=== PATIENT | female | born 1945 | race Caucasian/White ===

== ENCOUNTER 2017-04-07 09:31 | Inpatient (IN) | payer OTHER ==
[2017-04-07] MEDS ORDERED: SODIUM CHLORIDE 500 ML IV STA (11:20)
--- NOTE | 2017-04-07 11:28 | PDOC ---
History of Present Illness - General Chief Complaint: Dysphagia Stated Complaint: TROUBLE SWALLOWING Time Seen by Provider: 04/07/17 10:21 History Source: Patient - History of Present Illness Timing/Duration: reports: constant Past History - Past Medical History Allergies/Adverse Reactions: Allergies Allergy/AdvReac Type Severity Reaction Status Date / Time Sulfa (Sulfonamide Allergy Intermediate hives Unverified 04/07/17 11:31 Antibiotics) [Sulfa(Sulfonamide Antibiotics)] Home Medications: Ambulatory Orders Ca/D3/Mag#11/Zinc/Bobtailer/Lorenzo/Bor [Caltrate 600+D Plus Tablet] 1 each PO DAILY Dicyclomine HCl [Bentyl] 10 mg PO TID 04/07/17 Lactobacillus Combo No.13 [Probiotic Pearls Complete] 1 each PO DAILY 04/07/17 Levothyroxine Sodium [Levo-T] 100 mcg PO DAILY 04/07/17 Losartan Potassium 50 mg PO DAILY 04/07/17 Metformin HCl 500 mg PO BID 04/07/17 Metoprolol Succinate [Toprol Xl -] 25 mg PO DAILY 04/07/17 Multivit,Tx Iron,Other Mins [Azdekfyf-T-K with Minerals] 1 each PO DAILY Omeprazole 20 mg PO DAILY 04/07/17 Oxybutynin Chloride [Ditropan Xl] 15 mg PO DAILY 04/07/17 Pumpkin Seed Extract/Soy Germ [Azo Bladder Control Capsule] 300 mg PO DAILY Anemia: No Asthma: No Cancer: No Cardiac Disorders: No CVA: No COPD: No CHF: No Dementia: Yes (NIDDM) GI Disorders: Yes (GERD, STRICTURE IN ESOPHOGUS ,DIVERTICULITIS) Disorders: Yes (UTI'S) HTN: Yes Hypercholesterolemia: Yes Seizures: No Thyroid Disease: Yes - Surgical History Abdominal Surgery: No Appendectomy: No Cardiac Surgery: No Cholecystectomy: No Lung Surgery: No Neurologic Surgery: No Orthopedic Surgery: No - Psycho/Social/Smoking Cessation Hx Anxiety: No Suicidal Ideation: No Smoking History: Never smoked Have you smoked in the past 12 months: No If you are a former smoker, when did you quit?: 25-30 YEARS Hx Alcohol Use: No Drug/Substance Use Hx: No Substance Use Type: None Review of Systems - Review of Systems Constitutional: No: Fever, Unexplained wgt Loss ABD/GI: Yes: Nausea, Vomiting. No: Diarrhea, Rectal Bleeding, Abdominal cramping, Tarry Stools *Physical Exam - Vital Signs Last Vital Signs Temp Pulse Resp BP Pulse Ox 98.0 F 112 H 18 154/89 98 04/07/17 09:32 04/07/17 09:32 04/07/17 09:32 04/07/17 09:32 04/07/17 09:32 - Physical Exam General Appearance: Yes: Appropriately Dressed. No: Apparent Distress HEENT: positive: Normal Voice Neck: positive: Supple Respiratory/Chest: positive: Lungs Clear, Normal Breath Sounds. negative: Respiratory Distress Cardiovascular: positive: Regular Rate, S1, S2 Gastrointestinal/Abdominal: positive: Soft. negative: Tender Integumentary: positive: Dry, Warm Neurologic: positive: Fully Oriented, Alert, Normal Mood/Affect ED Treatment Course - LABORATORY CBC & Chemistry Diagram: 04/07/17 11:53 04/07/17 11:53 Medical Decision Making - Medical Decision Making 04/07/17 11:36 04/07/17 12:08 71 yo F, h/o DM, diverticulitis, hiatal hernia, gastritis, GERD C/B presbyesophagus w/ multiple dilatations 2/2 dysphagia, last procedure 4 years ago and states she was doing well until several days ago when dysphagia reoccurred. States when she eats, food gets suck and has to regurgitate. Has difficulty handling her secretions as well. Also c/o excessive belching and had 1 e/o n/v last night. No abd pain, change in BM, f/c or unexplained weight loss See exam Recurrent dysphagia 2/2 presbyesophagus S/p dilitation 4 years ago Tachy at triage which is possibly 2/2 dehydration as unable to harinder po x >24 hrs Has difficulty handling secretion F/u w/ GI here -labs/GI/admit 04/07/17 12:54 Case d/w Dr Flood who pt admitted to [facility]. As per MD, pt has had ~2 point drop in Hct from 11 to 9 recently. Rec stool guaiac in ED. Dr Eaton aware and pt admitted 04/07/17 13:09 Case d/w Dr Arana (coverage for Dr Jackson), wants CT chest r/o food impaction *DC/Admit/Observation/Transfer Diagnosis at time of Disposition: Dysphagia Qualifiers: Dysphagia type: unspecified Qualified Code(s): R13.10 - Dysphagia, unspecified - Discharge Dispostion Condition at time of disposition: Fair Admit: Yes - Referrals
[2017-04-07 12:10] LABS: BASOPHIL 0.5 % (0-2.0); EOSINOPHIL 1.1 % (0-4.5); MCH 25.6 pg (25.7-33.7); MCHC 31.7 g/dl (32.0-36.0); MEAN CELL VOLUME 80.7 fl (80-96); MEAN PLT VOLUME 8.7 fl (7.5-11.1); NEUTROPHILS 81.2 % (42.8-82.8); PLATELET COUNT 376 K/MM3 (134-434); WHITE BLOOD COUNT 15.3 K/mm3 (4.0-10.0)
--- NOTE | 2017-04-07 12:32 | PDOC ---
*Physical Exam - Vital Signs Last Vital Signs Temp Pulse Resp BP Pulse Ox 98.0 F 112 H 18 154/89 98 04/07/17 09:32 04/07/17 09:32 04/07/17 09:32 04/07/17 09:32 04/07/17 09:32 - Physical Exam Comments: 04/07/17 12:43 The patient is a 71 year old female, with a significant past medical history of hypertension, hypothyroidism, GERD with h/o esophageal stricture with multiple dilatations 2/2 dysphagia, (last procedure 4 years ago) , gastritis, hiatal hernia, who presents to the emergency department with several days of dysphagia. The patient states that when she eats, food gets stuck in her throat and she states she feels she has to regurgitate. She also reports having difficulty swallowing her secretions. She denies chest pain, shortness of breath, headache and dizziness. She denies fever, chills, nausea, vomit, diarrhea and constipation. She denies dysuria, frequency, urgency and hematuria. Allergies: sulfa drugs GI: Dr. Jackson <Marry Tamez - Last Filed: 04/07/17 12:43> - Vital Signs Last Vital Signs Temp Pulse Resp BP Pulse Ox 98.0 F 112 H 18 154/89 98 04/07/17 09:32 04/07/17 09:32 04/07/17 09:32 04/07/17 09:32 04/07/17 09:32 - Physical Exam General Appearance: Yes: Nourished, Appropriately Dressed. No: Apparent Distress, Disheveled HEENT: positive: EOMI, Normal ENT Inspection, Normal Voice Neck: positive: Trachea midline. negative: Normal Thyroid, Supple Respiratory/Chest: positive: Chest Tender, Lungs Clear, Normal Breath Sounds Cardiovascular: positive: Regular Rhythm, Regular Rate, S1, S2. negative: Edema , JVD Gastrointestinal/Abdominal: positive: Normal Bowel Sounds, Flat, Soft. negative : Tender Musculoskeletal: positive: Normal Inspection Integumentary: positive: Normal Color, Dry, Warm Neurologic: positive: Fully Oriented, Alert, Normal Mood/Affect <Natalia Hi - Last Filed: 04/07/17 13:42> ED Treatment Course - LABORATORY CBC & Chemistry Diagram: 04/07/17 11:53 04/07/17 11:53 - ADDITIONAL ORDERS Additional order review: Laboratory Results 04/07/17 11:53 Sodium 140 Potassium 4.3 Chloride 102 Carbon Dioxide 26 Anion Gap 12 BUN 22 H Creatinine 0.6 Creat Clearance w eGFR > 60 Random Glucose 125 H Calcium 8.7 Total Bilirubin 0.4 AST 31 ALT 25 Alkaline Phosphatase 57 Total Protein 7.3 Albumin 3.9 04/07/17 11:53 RBC 3.77 MCV 80.7 MCHC 31.7 L RDW 14.0 MPV 8.7 Neutrophils % 81.2 Lymphocytes % 7.5 L Monocytes % 9.7 Eosinophils % 1.1 Basophils % 0.5 - Medications Given in the ED: ED Medications Discontinued Medications Generic Name Dose Route Start Last Admin Trade Name Freq PRN Reason Stop Dose Admin Sodium Chloride 500 mls @ 0 mls/hr 04/07/17 11:20 04/07/17 11:50 Normal Saline - IV 04/07/17 11:21 500 mls/hr ASDIR STA Administration Wide Open <Marry Tamez - Last Filed: 04/07/17 12:43> - LABORATORY CBC & Chemistry Diagram: 04/07/17 11:53 04/07/17 11:53 - Medications Given in the ED: ED Medications Discontinued Medications Generic Name Dose Route Start Last Admin Trade Name Freq PRN Reason Stop Dose Admin Sodium Chloride 500 mls @ 0 mls/hr 04/07/17 11:20 04/07/17 11:50 Normal Saline - IV 04/07/17 11:21 500 mls/hr ASDIR STA Administration Wide Open <Natalia Hi - Last Filed: 04/07/17 13:42> Medical Decision Making - Medical Decision Making 04/07/17 12:28 71 yo F with ho DM gastritis hiatal hernia, gerd h/o esophageal stricture requiring dilation, here with, recurrent episodes of food bolus impaction. has had last dilation several years ago. over last few weeks, has had several episodes where food gets stuck. most recently got beef rollup stuck in throat. initially couldn't handle saliva, or water. now this am holding secretions, but comes back up delayed. no cough no cp. no other complaints. pt sees dr. Jackson ( GI) told to come to ED. on exam awake alert no stridor. noral card lung and abd exam. diferential: foreign body sensation, throat scratch, esophageal food bolus impaction, worsening stricture plan d/w dr. Jackson, possible admission for food bolus removal or dilation. labs. reassess. 04/07/17 13:42 pt will be admitted, d/w Dr. Jackson <Natalia Hi - Last Filed: 04/07/17 13:42> *DC/Admit/Observation/Transfer - Attestations Scribe Attestion: 04/07/17 12:44 Documentation prepared by Marry Tamez, acting as medical billing assistant for Natalia Hi MD <Marry Tamez - Last Filed: 04/07/17 12:43> <Natalia Hi - Last Filed: 04/07/17 13:42> Diagnosis at time of Disposition: Dysphagia - Discharge Dispostion Condition at time of disposition: Fair - Referrals
[2017-04-07 12:33] LABS: ALBUMIN 3.9 g/dl (3.4-5.0); ANION GAP 12 (8-16); CALCIUM 8.7 mg/dL (8.5-10.1); CO2 26 mmol/L (21-32); CREATININE 0.6 mg/dL (0.55-1.02); GLUCOSE,RANDOM 125 mg/dL (74-106); SGPT/ALT 25 U/L (12-78)
[2017-04-07 12:36] LABS: ALK PHOS 57 U/L (45-117); BILIRUBIN,TOTAL 0.4 mg/dL (0.2-1.0); TOT PROT 7.3 g/dl (6.4-8.2)
[2017-04-07 12:37] LABS: SGOT/AST 31 U/L (15-37)
[2017-04-07 12:48] LABS: INR 1.12 (0.82-1.09); PROTHROMBIN TIME (PATIENT) 12.4 SEC (9.98-11.88)
--- NOTE | 2017-04-07 12:53 | EKG ---
Test Reason : Blood Pressure : / mmHG Vent. Rate : 100 BPM Atrial Rate : 100 BPM P-R Int : 106 ms QRS Dur : 074 ms QT Int : 374 ms P-R-T Axes : 018 -03 030 degrees QTc Int : 482 ms SINUS RHYTHM WITH SHORT [place] OTHERWISE NORMAL ECG WHEN COMPARED WITH ECG OF 27-JUL-2008 23:02, NO SIGNIFICANT CHANGE WAS FOUND Confirmed by ANICETO MCDONALD MD ([id number]) on 04/07/2017 12:52:47 PM Referred By: Confirmed By:ANICETO MCDONALD MD
[2017-04-07 13:42] VITALS: BMI 22.3
--- NOTE | 2017-04-07 13:58 | PN ---
Progress Note (short form) - Note Progress Note: Full consult dictated 71F with h/o hiatal hernia, schatzki's ring, ? Estrada's stricture, h/o food impactions requiring esophageal dilation 08/21 and 2009. Now with more frequent difficulty swallowing solids over the last 2-3 weeks (did not seek medical advice regarding this). She says that she was able to "clear it on her own" except for last night when she ate djiboutian food (bulk meat was involved). She does not adhere to a dysphagia diet. She was spitting up saliva last night and this morning. Less now. Imp: Suspected recurrent food impaction Plan: EGD with possible dilation for further evaluation. Discussed with Ms. Gottlieb and her family who was present bedside. Discussed potential risks of the procedure like but not limited to bleeding, perforation requiring surgery to repair, infection, sedation medication effects all of which could be potentially life threatening. She has agreed to the procedure. She is aware she is likely to require general anesthesia to protect her airway.
[2017-04-07] MEDS ORDERED: LIDOCAINE HCL/PF 2% SDV 5ML VIAL ONE (14:29)
[2017-04-07] MEDS ORDERED: PROPOFOL 20 ML ONE (14:29)
--- NOTE | 2017-04-07 14:37 | CONS ---
DATE OF CONSULTATION: 04/07/2017 REQUESTING PHYSICIAN: Kyle Flood MD HISTORY: The patient is a 71-year-old female admitted through [facility] Emergency Room for evaluation of dysphagia. She is known to my colleague, Dr. Ross Jackson, and she is known to have a history of dysphagia. She had an upper endoscopy in 2006 when she presented with a meat impaction requiring extraction and dilatation of a Estrada stricture. She also had a dilation of her esophagus in 2009 in [place] when biopsies could not exclude eosinophilic esophagitis. Her last upper endoscopy with Dr. Jackson was October 2015 that revealed GERD with a patent Schatzki ring above a hiatal hernia and moderate gastritis. In follow up on October 22, [address] Jackson, he recommended continuing antireflux measures as well as ranitidine 150 mg b.i.d. supplemented with Gaviscon, and he did advise the patient to undergo a colonoscopy to exclude recurrent colon adenomas as she has a history of colon polyps; however, she deferred at that time. She now states that over the last couple of weeks she has been having more frequent episodes of dysphagia to solids, and she says she was able to clear them on her own through vomiting; however, last night she went to a [employer] restaurant. She ate tortillas. She tasted a chicken wing; however, it was too spicy and then she ate a beer wrap and began to experience worsening of her dysphagia. She was vomiting up liquids and could not maintain her saliva. She did not seek medical evaluation regarding the previous episodes or the episodes from last night until today when she was advised to go to the emergency room. She did have some vomiting earlier this morning, and while it is improved somewhat, she still feels it is hard for her to swallow water. PAST MEDICAL HISTORY: Includes diabetes mellitus, hypertension, hyperlipidemia, hypothyroidism, question of a resolved Estrada stricture. It is unclear if her dysphagia was related to dysmotility or the Schatzki ring. Colonoscopic polypectomies in 2004. She was noted to have a sigmoid adenoma, diverticulitis in July 2008, IBS, broken left arm in 2007, osteoporosis, and interstitial cystitis. PAST SURGICAL HISTORY: Includes bilateral iridectomies. She had a left breast biopsy that revealed it to be benign cystic changes. SOCIAL HISTORY: She is single. She is a retired customer field service tech. Former smoker. Quit in 1984. She drinks alcohol rarely. No history of intravenous drug abuse or illicit drugs. FAMILY HISTORY: Father at age 94. Mother of age 91 of diabetic complications. She has a sister who had kidney excised for benign neoplasm and had bleeding ulcers. An aunt with a history of breast cancer. An aunt with a history of stomach cancer. An aunt with a history of bone cancer. She has no children. MEDICATIONS: Prior to admission included Oxybutynin, metformin, dicyclomine, simvastatin, metoprolol, Levoxyl, losartan, ranitidine, fish oil, Caltrate, probiotic, and multivitamin. ALLERGIES: SULFA and some [id number] ANTIHISTAMINES, which give her palpitations. REVIEW OF SYSTEMS: She denied any chest pain or shortness of breath. No fevers or chills. She does have a cough when lying flat. No rectal bleeding. No melena was reported. No diarrhea. No change in her bowel habits. No abdominal pain. PHYSICAL EXAMINATION: General: The patient was found lying in her emergency room stretcher. She appears to be in no apparent distress. Vital Signs: She is afebrile with a pulse of 96, blood pressure 124/87, O2 saturation 99% on room air. HEENT: Her sclerae are anicteric. Neck: Supple. Heart: Reveals a regular rate and rhythm. No murmurs are appreciated. Lungs: Clear to auscultation bilaterally. Abdomen: The abdomen is nondistended. There are no scars. No hepatosplenomegaly is appreciated. No masses are palpated. No hernias are detected. No tenderness is elicited. Extremities: Reveals no lower extremity edema. LABORATORY EVALUATION: Reveals white blood cell count 15.3, hemoglobin 9.7, hematocrit 30.4, platelets 376, INR 1.12. Sodium 140, potassium 4.3, chloride 102, bicarbonate 26, BUN 22, creatinine 0.6, AST 31, ALT 25, alkaline phosphatase 57, total bilirubin 0.4 with an albumin 3.9. RADIOLOGY: A chest x-ray was performed in the emergency room revealing no evidence of acute pulmonary disease and EKG performed revealed sinus rhythm with short [place]. Otherwise, normal EKG. No significant change when compared to an EKG from July 27, 2008. IMPRESSION: This is a 71-year-old female with suspected recurrent esophageal food impaction. Question if this is related to esophageal stricture or Schatzki ring, her hiatal hernia, and I did discuss EGD with possible dilation for further evaluation. I discussed this with the patient and her sister who was present at bedside. We discussed potential risks of the procedure like, but not limited to, bleeding, perforation requiring surgery to repair, infection, sedation, medication effects all of which could be potentially life threatening. She has agreed to the procedure. She is also aware that she will likely require general anesthesia to protect her airway in case there is a significant amount of food retained within her esophagus. Other recommendations pending the above patient's clinical course. I thank you for this consultative opportunity. GUERA SCHULTZ DO CD/[id number]
--- NOTE | 2017-04-07 15:30 | HP ---
Admitting History and Physical - Primary Care Physician PCP: Kyle Flood - Admission Chief Complaint: I was having trouble swallowing History of Present Illness: Ms Gottlieb is a very pleasant 71 year old female with history of Schatzki ring who comes in with difficulty swallowing over the past week. She says it has happened 3 times this week. She says she will be eating something and will feel it get stuck in her throat. The first two times it went away on its own but the third time it persisted. The third time it was so severe she was unable to swallow liquids or her secretions. She would throw up every time she swallowed. Aside from this she says she is doing well. She denies fevers, chills, lightheadedness, dizziness, chest pain, shortness of breath, nausea, diarrhea, constipation, difficulty or pain on urination, or swelling. I am seeing her s/p endoscopy and she says she is feeling much better. She is a little drowsy from the procedure but otherwise doing well. History Source: Patient Limitations to Obtaining History: No Limitations - Past Medical History Cardiovascular: Yes: HTN, Hyperlipdemia Gastrointestinal: Yes: GERD, Other (hiatal hernia) ...: No Endocrine: Yes: Diabetes Mellitus, Hypothyroidism - Past Surgical History Past Surgical History: Yes: None - Smoking History Smoking history: Never smoked Have you smoked in the past 12 months: No If you are a former smoker, when did you quit?: 25-30 YEARS - Alcohol/Substance Use Hx Alcohol Use: No History of Substance Use: reports: None - Social History ADL: Independent History of Recent Travel: No Home Medications - Allergies Allergies/Adverse Reactions: Allergies Allergy/AdvReac Type Severity Reaction Status Date / Time Sulfa (Sulfonamide Allergy Intermediate hives Unverified 04/07/17 11:31 Antibiotics) [Sulfa(Sulfonamide Antibiotics)] - Home Medications Home Medications: Ambulatory Orders Ca/D3/Mag#11/Zinc/Australian Rules Footballer/Lorenzo/Bor [Caltrate 600+D Plus Tablet] 1 each PO DAILY Dicyclomine HCl [Bentyl] 10 mg PO TID 04/07/17 Lactobacillus Combo No.13 [Probiotic Pearls Complete] 1 each PO DAILY 04/07/17 Levothyroxine Sodium [Levo-T] 100 mcg PO DAILY 04/07/17 Losartan Potassium 50 mg PO DAILY 04/07/17 Metformin HCl 500 mg PO BID 04/07/17 Metoprolol Succinate [Toprol Xl -] 25 mg PO DAILY 04/07/17 Multivit,Tx Iron,Other Mins [Zkcavdwp-Q-G with Minerals] 1 each PO DAILY Omeprazole 20 mg PO DAILY 04/07/17 Oxybutynin Chloride [Ditropan Xl] 15 mg PO DAILY 04/07/17 Pumpkin Seed Extract/Soy Germ [Azo Bladder Control Capsule] 300 mg PO DAILY Family Disease History - Family Disease History Family Disease History: Other: Sister (one kidney, removed for unknown reason) Review of Systems Findings/Remarks: Full review of systems obtained, as per HPI and otherwise negative Physical Examination Vital Signs: Vital Signs Temperature 98.2 F 04/07/17 15:00 Pulse Rate 107 H 04/07/17 15:00 Respiratory Rate 18 04/07/17 15:00 Blood Pressure 112/72 04/07/17 15:00 O2 Sat by Pulse Oximetry (%) 94 L 04/07/17 15:00 Constitutional: Yes: Well Nourished, No Distress, Calm Eyes: Yes: Conjunctiva Clear, EOM Intact HENT: Yes: Atraumatic, Normocephalic Cardiovascular: Yes: Regular Rate and Rhythm. No: Gallop, Murmur, Rub Respiratory: Yes: Regular, CTA Bilaterally. No: Rales, Rhonchi, Wheezes Gastrointestinal: Yes: Normal Bowel Sounds, Soft. No: Distention, Tenderness Extremities: Yes: WNL Edema: No Labs: Laboratory Results - last 24 hr 04/07/17 04/07/17 04/07/17 11:20 11:53 11:53 WBC 15.3 H RBC 3.77 Hgb 9.7 L Hct 30.4 L MCV 80.7 MCHC 31.7 L RDW 14.0 Plt Count 376 MPV 8.7 Neutrophils % 81.2 Lymphocytes % 7.5 L Monocytes % 9.7 Eosinophils % 1.1 Basophils % 0.5 INR 1.12 Sodium Potassium Chloride Carbon Dioxide Anion Gap BUN Creatinine Creat Clearance w eGFR Random Glucose Calcium Total Bilirubin AST ALT Alkaline Phosphatase Total Protein Albumin Stool Occult Blood Blood Type A POSITIVE Antibody Screen Negative 04/07/17 04/07/17 11:53 13:37 WBC RBC Hgb Hct MCV MCHC RDW Plt Count MPV Neutrophils % Lymphocytes % Monocytes % Eosinophils % Basophils % INR Sodium 140 Potassium 4.3 Chloride 102 Carbon Dioxide 26 Anion Gap 12 BUN 22 H Creatinine 0.6 Creat Clearance w eGFR > 60 Random Glucose 125 H Calcium 8.7 Total Bilirubin 0.4 AST 31 ALT 25 Alkaline Phosphatase 57 Total Protein 7.3 Albumin 3.9 Stool Occult Blood Negative Blood Type Antibody Screen Problem List - Problems (1) Dysphagia Assessment/Plan: -case d/w Dr Arana -s/p endoscopy with dilatation -monitor overnight -PPI -full liquid diet -evaluate, possible discharge in am Code(s): R13.10 - DYSPHAGIA, UNSPECIFIED Qualifiers: Dysphagia type: unspecified Qualified Code(s): R13.10 - Dysphagia, unspecified (2) Leukocytosis Assessment/Plan: -suspect secondary to dehydration -no signs of sepsis -encourage oral hydration -recheck in am Code(s): D72.829 - ELEVATED WHITE BLOOD CELL COUNT, UNSPECIFIED (3) Dehydration Assessment/Plan: -encourage oral hydration -received IVF in the ED Code(s): E86.0 - DEHYDRATION (4) Anemia Assessment/Plan: -no previous labs -stool occult negative Code(s): D64.9 - ANEMIA, UNSPECIFIED (5) HTN (hypertension) Assessment/Plan: -continue home regimen -monitor Code(s): I10 - ESSENTIAL (PRIMARY) HYPERTENSION (6) Diabetes Assessment/Plan: -continue home regimen -full liquid diabetic diet -can monitor glucose on bmp Code(s): E11.9 - TYPE 2 DIABETES MELLITUS WITHOUT COMPLICATIONS (7) Hypothyroid Assessment/Plan: -continue levothyroxine Code(s): E03.9 - HYPOTHYROIDISM, UNSPECIFIED
[2017-04-07] MEDS ORDERED: FUROSEMIDE 40 MG/4 ML INJECTABLE VIAL IVPB ONE (16:42)
[2017-04-07] MEDS ORDERED: FUROSEMIDE 40 MG/4 ML INJECTABLE VIAL ONE (16:44)
--- NOTE | 2017-04-07 17:38 | PN ---
Progress Note (short form) - Note Progress Note: Called that patient with low O2 saturations to low 80's. Placed on 2L NC O2. Saturations improved to upper 80's. CXR was performed revealing congestive changes, mild nausea. She denies shortness of breath / chest pain. Dr. Eaton gave Lasix 20mg IVP. Remains tachycardic to low 100's. On exam, mild ronchi bilaterally. No chest pain. - Advised changing admission to monitored bed - Ordered Ceftriaxone 2g IVPB - Ordered CBC/BMP Stat - Has CT scan of chest ordered from ER. Would proceed with that as well - O2 supplementation
[2017-04-07 20:23] LABS: BASOPHIL 0.4 % (0-2.0); EOSINOPHIL 0.6 % (0-4.5); MCH 25.4 pg (25.7-33.7); MCHC 31.8 g/dl (32.0-36.0); MEAN CELL VOLUME 79.8 fl (80-96); MEAN PLT VOLUME 8.7 fl (7.5-11.1); NEUTROPHILS 83.2 % (42.8-82.8); PLATELET COUNT 400 K/MM3 (134-434); RDW 14.3 % (11.6-15.6); WHITE BLOOD COUNT 15.5 K/mm3 (4.0-10.0)
[2017-04-07 21:12] LABS: CALCIUM 8.6 mg/dL (8.5-10.1); COCKROFT - GAULT 65.5435; CREATININE 0.7 mg/dL (0.55-1.02)
[2017-04-07] MEDS: DICYCLOMINE HCL 10 MG CAPSULE PO SCH (21:46)
[2017-04-07] MEDS: CEFTRIAXONE 100 ML IVPB SCH (21:49)
[2017-04-07] MEDS ORDERED: PANTOPRAZOLE 40 MG TABLET (FP) PO SCH (22:00)
[2017-04-08] MEDS: DICYCLOMINE HCL 10 MG CAPSULE PO SCH ×2 (06:18→13:17)
[2017-04-08] MEDS: metFORMIN HCL 500 MG TABLET (FP) PO SCH ×2 (06:18→17:06)
[2017-04-08] MEDS: FUROSEMIDE 40 MG/4 ML INJECTABLE VIAL IVPUSH SCH ×2 (06:19→13:17)
[2017-04-08] MEDS ORDERED: LEVOTHYROXINE NA 100 MCG TABLET (FP) PO SCH (07:00)
[2017-04-08 07:58] LABS: CALCIUM 9.2 mg/dL (8.5-10.1); COCKROFT - GAULT 62.679; CREATININE 0.7 mg/dL (0.55-1.02); MAGNESIUM 1.9 mg/dL (1.8-2.4); PHOSPHOROUS 4.1 mg/dL (2.5-4.9)
[2017-04-08 08:02] LABS: BASOPHIL 0.8 % (0-2.0); EOSINOPHIL 3.9 % (0-4.5); MCHC 32.4 g/dl (32.0-36.0); MEAN CELL VOLUME 80.4 fl (80-96); NEUTROPHILS 73.3 % (42.8-82.8); PLATELET COUNT 420 K/MM3 (134-434); RDW 14.2 % (11.6-15.6); WHITE BLOOD COUNT 11.6 K/mm3 (4.0-10.0)
[2017-04-08] MEDS: CEFTRIAXONE 100 ML IVPB SCH (09:25)
[2017-04-08] MEDS ORDERED: PUMPKIN SEED EXTRACT PO SCH (10:00)
[2017-04-08] MEDS ORDERED: SOLIFENACIN SUCCINATE 5 MG TAB (FP) PO SCH (10:00)
[2017-04-08] MEDS ORDERED: METOPROLOL SUCCINATE 25 MG TAB.SR.24H (FP) PO SCH (10:00)
[2017-04-08] MEDS ORDERED: [UNRECOGNIZED DRUG - OTHER] PO SCH (10:00)
[2017-04-08] MEDS ORDERED: LOSARTAN POTASSIUM 50 MG TABLET (FP) PO SCH (10:00)
[2017-04-08] MEDS ORDERED: CALCIUM 500MG/VIT-D 200 UNITS COMBO TABLET (FP) PO SCH (10:00)
[2017-04-08] MEDS ORDERED: SOY GERM PO SCH (10:00)
[2017-04-08] MEDS ORDERED: PATIENT'S OWN MEDICATION (NON-FORMULARY) (Omeprazole 20 MG) PO SCH (10:00)
[2017-04-08] MEDS ORDERED: [UNRECOGNIZED DRUG - OTHER] PO SCH (10:00)
[2017-04-08] MEDS ORDERED: [UNRECOGNIZED DRUG - OTHER] PO SCH (10:00)
--- NOTE | 2017-04-08 13:14 | PN ---
Progress Note, Physician Chief Complaint: Ms Gottlieb says she is feeling well and wants to go home. No cp, sob, n/v. - Current Medication List Current Medications: Active Medications Calcium Carbonate/Cholecalciferol (Os-Geovanni 500+D -) 1 tab PO DAILY [facility] Last Admin: 04/08/17 09:25 Dose: 1 tab Dicyclomine HCl (Bentyl -) 10 mg PO TID [facility] Last Admin: 04/08/17 06:18 Dose: 10 mg Furosemide (Lasix Injection -) 40 mg IVPUSH BID@0600,1400 [facility] Last Admin: 04/08/17 06:19 Dose: 40 mg Ceftriaxone Sodium (Rocephin 2gm Ivpb (Pre-Docked)) 100 mls @ 200 mls/hr IVPB DAILY [facility] Last Admin: 04/08/17 09:25 Dose: 200 mls/hr Levothyroxine Sodium (Synthroid -) 100 mcg PO DAILY@0700 [facility] Last Admin: 04/08/17 06:18 Dose: 100 mcg Losartan Potassium (Cozaar -) 50 mg PO DAILY [facility] Last Admin: 04/08/17 09:25 Dose: 50 mg Metformin HCl (Glucophage -) 500 mg PO BIDAC [facility] Last Admin: 04/08/17 06:18 Dose: 500 mg Metoprolol Succinate (Toprol Xl -) 25 mg PO DAILY [facility] Last Admin: 04/08/17 09:25 Dose: 25 mg Non-Formulary Medication (Lactobacillus Combo No.13 [Probiotic Pearls Complete] ) 1 each PO DAILY [facility] Non-Formulary Medication (Multivit,Tx Iron,Other Mins [Ssljrvwp-T-D With Minerals]) 1 each PO DAILY [facility] Non-Formulary Medication (Pumpkin Seed Extract/Soy Germ [Azo Bladder Control Capsule]) 300 mg PO DAILY [facility] Pantoprazole Sodium (Protonix -) 40 mg PO HS [facility] Last Admin: 04/07/17 21:46 Dose: 40 mg Solifenacin (Vesicare -) 10 mg PO DAILY [facility] Last Admin: 04/08/17 09:25 Dose: 10 mg - Objective Vital Signs: Vital Signs Temperature 98.2 F 04/08/17 08:10 Pulse Rate 114 H 04/08/17 08:10 Respiratory Rate 16 04/08/17 08:10 Blood Pressure 114/94 04/08/17 08:10 O2 Sat by Pulse Oximetry (%) 95 04/08/17 09:00 Constitutional: Yes: Well Nourished, No Distress, Calm Cardiovascular: Yes: Regular Rate and Rhythm. No: Gallop, Murmur, Rub Respiratory: Yes: Regular, On Nasal O2, Rhonchi. No: Rales, Wheezes Gastrointestinal: Yes: Normal Bowel Sounds, Soft. No: Distention, Tenderness Extremities: Yes: WNL Edema: No Labs: CBC, BMP 04/08/17 05:35 04/08/17 05:35 INR, PTT INR 1.12 (0.82-1.09) 04/07/17 11:53 Problem List - Problems (1) Hypoxia Code(s): R09.02 - HYPOXEMIA (2) Dysphagia Code(s): R13.10 - DYSPHAGIA, UNSPECIFIED Qualifiers: Dysphagia type: unspecified Qualified Code(s): R13.10 - Dysphagia, unspecified (3) Leukocytosis Code(s): D72.829 - ELEVATED WHITE BLOOD CELL COUNT, UNSPECIFIED (4) Dehydration Code(s): E86.0 - DEHYDRATION (5) Anemia Code(s): D64.9 - ANEMIA, UNSPECIFIED (6) HTN (hypertension) Code(s): I10 - ESSENTIAL (PRIMARY) HYPERTENSION (7) Diabetes Code(s): E11.9 - TYPE 2 DIABETES MELLITUS WITHOUT COMPLICATIONS (8) Hypothyroid Code(s): E03.9 - HYPOTHYROIDISM, UNSPECIFIED Assessment/Plan (1) Hypoxia -? fluid overload versus aspiration pneumonitis -cardiology consulted -ECHO ordered -gently diuresed -on rocephin since with leukocytosis -pre and post to see if can stop oxygen (2) Dysphagia Assessment/Plan: -s/p endoscopy -advance diet Code(s): R13.10 - DYSPHAGIA, UNSPECIFIED Qualifiers: Dysphagia type: unspecified Qualified Code(s): R13.10 - Dysphagia, unspecified (3) Leukocytosis Assessment/Plan: -may be secondary to aspiration pneumonia -improving -continue rocephin -if no longer needing oxygen, can change to clindamycin and discharge Code(s): D72.829 - ELEVATED WHITE BLOOD CELL COUNT, UNSPECIFIED (4) Dehydration Assessment/Plan: -resolved Code(s): E86.0 - DEHYDRATION (5) Anemia Assessment/Plan: -stable -outpatient monitoring Code(s): D64.9 - ANEMIA, UNSPECIFIED (6) HTN (hypertension) Assessment/Plan: -continue home regimen -monitor Code(s): I10 - ESSENTIAL (PRIMARY) HYPERTENSION (7) Diabetes Assessment/Plan: -continue home regimen Code(s): E11.9 - TYPE 2 DIABETES MELLITUS WITHOUT COMPLICATIONS (8) Hypothyroid Assessment/Plan: -continue levothyroxine Code(s): E03.9 - HYPOTHYROIDISM, UNSPECIFIED Dispo -possible discharge today if able to wean to RA and cleared by cardiology
--- NOTE | 2017-04-08 16:19 | CON.CARD ---
Cardiology Consult (text) - Consultation Consultation Note: CC: hypoxia 71 year old female with history of Schatzki ring who comes in with difficulty swallowing over the past week hospital course complicated by hypoxic episode post-endoscopy. + sensation of food getting stuck in her throat. + dysphagia She denies fevers, chills, lightheadedness, dizziness, chest pain, shortness of breath, nausea, diarrhea, constipation, difficulty or pain on urination, or swelling. social hx: former smoker family hx: no cardiac history ros: per hpi - Past Medical History Cardiovascular: Yes: HTN, Hyperlipdemia Gastrointestinal: Yes: GERD, Other (hiatal hernia) ...: No Endocrine: Yes: Diabetes Mellitus, Hypothyroidism - Ambulatory Orders Ca/D3/Mag#11/Zinc/Cruise Consultant/Lorenzo/Bor [Caltrate 600+D Plus Tablet] 1 each PO DAILY Dicyclomine HCl [Bentyl] 10 mg PO TID 04/07/17 Lactobacillus Combo No.13 [Probiotic Pearls Complete] 1 each PO DAILY 04/07/17 Levothyroxine Sodium [Levo-T] 100 mcg PO DAILY 04/07/17 Losartan Potassium 50 mg PO DAILY 04/07/17 Metformin HCl 500 mg PO BID 04/07/17 Metoprolol Succinate [Toprol Xl -] 25 mg PO DAILY 04/07/17 Multivit,Tx Iron,Other Mins [Zmxskosv-Z-C with Minerals] 1 each PO DAILY Omeprazole 20 mg PO DAILY 04/07/17 Oxybutynin Chloride [Ditropan Xl] 15 mg PO DAILY 04/07/17 Pumpkin Seed Extract/Soy Germ [Azo Bladder Control Capsule] 300 mg PO DAILY Current Medications Calcium Carbonate/Cholecalciferol (Os-Geovanni 500+D -) 1 tab PO DAILY [facility] Last Admin: 04/08/17 09:25 Dose: 1 tab Dicyclomine HCl (Bentyl -) 10 mg PO TID [facility] Last Admin: 04/08/17 13:17 Dose: 10 mg Furosemide (Lasix Injection -) 40 mg IVPUSH BID@0600,1400 [facility] Last Admin: 04/08/17 13:17 Dose: 40 mg Ceftriaxone Sodium (Rocephin 2gm Ivpb (Pre-Docked)) 100 mls @ 200 mls/hr IVPB DAILY [facility] Last Admin: 04/08/17 09:25 Dose: 200 mls/hr Levothyroxine Sodium (Synthroid -) 100 mcg PO DAILY@0700 [facility] Last Admin: 04/08/17 06:18 Dose: 100 mcg Losartan Potassium (Cozaar -) 50 mg PO DAILY [facility] Last Admin: 04/08/17 09:25 Dose: 50 mg Metformin HCl (Glucophage -) 500 mg PO BIDAC [facility] Last Admin: 04/08/17 06:18 Dose: 500 mg Metoprolol Succinate (Toprol Xl -) 25 mg PO DAILY [facility] Last Admin: 04/08/17 09:25 Dose: 25 mg Non-Formulary Medication (Lactobacillus Combo No.13 [Probiotic Pearls Complete] ) 1 each PO DAILY [facility] Non-Formulary Medication (Multivit,Tx Iron,Other Mins [Hsjqkmqp-J-Q With Minerals]) 1 each PO DAILY [facility] Non-Formulary Medication (Pumpkin Seed Extract/Soy Germ [Azo Bladder Control Capsule]) 300 mg PO DAILY [facility] Pantoprazole Sodium (Protonix -) 40 mg PO HS [facility] Last Admin: 04/07/17 21:46 Dose: 40 mg Solifenacin (Vesicare -) 10 mg PO DAILY [facility] Last Admin: 04/08/17 09:25 Dose: 10 mg Vital Signs - 24 hr 04/07/17 04/07/17 04/07/17 16:30 16:45 17:00 Temperature Pulse Rate 105 H 110 H 105 H Respiratory 18 20 18 Rate Blood Pressure 127/71 128/61 131/72 O2 Sat by Pulse 90 L 89 L 93 L Oximetry (%) 04/07/17 04/07/17 04/07/17 17:30 18:15 21:00 Temperature Pulse Rate 105 H 92 H Respiratory 18 18 Rate Blood Pressure 127/61 127/60 O2 Sat by Pulse 95 96 95 Oximetry (%) 04/08/17 04/08/17 04/08/17 02:07 06:00 08:10 Temperature 98.0 F 98.4 F 98.2 F Pulse Rate 86 88 114 H Respiratory 20 20 16 Rate Blood Pressure 128/84 140/80 114/94 O2 Sat by Pulse Oximetry (%) 04/08/17 04/08/17 04/08/17 09:00 13:27 14:01 Temperature 98.7 F Pulse Rate 106 H 112 H Respiratory 18 Rate Blood Pressure 105/59 O2 Sat by Pulse 95 95 Oximetry (%) Intake & Output 04/06/17 04/07/17 04/08/17 04/09/17 07:59 07:59 07:59 07:59 Intake Total 1040 100 Balance 1040 100 Weight 120 lb 8 oz CBC, BMP 04/08/17 05:35 04/08/17 05:35 Laboratory Tests 04/07/17 04/08/17 11:53 05:35 Magnesium 1.9 Total Bilirubin 0.4 AST 31 ALT 25 Alkaline Phosphatase 57 Albumin 3.9
[2017-04-08 17:18] VITALS: TEMP 98.9
[2017-04-08 17:43] VITALS: BP 102/72; PULSE 96
--- NOTE | 2017-04-08 18:30 | DS ---
Physical Examination Vital Signs: Vital Signs Temperature 98.9 F 04/08/17 17:00 Pulse Rate 96 H 04/08/17 17:22 Respiratory Rate 20 04/08/17 17:00 Blood Pressure 102/72 04/08/17 17:22 O2 Sat by Pulse Oximetry (%) 95 04/08/17 14:01 Labs: CBC, BMP 04/08/17 05:35 04/08/17 05:35 Discharge Summary Reason For Visit: DYSPHAGIA Current Active Problems Anemia (Acute) Dehydration (Acute) Diabetes (Acute) Dysphagia (Acute) HTN (hypertension) (Acute) Hypothyroid (Acute) Hypoxia (Acute) Leukocytosis (Acute) Hospital Course: (1) Hypoxia Code(s): R09.02 - HYPOXEMIA (2) Dysphagia Code(s): R13.10 - DYSPHAGIA, UNSPECIFIED Qualifiers: Dysphagia type: unspecified Qualified Code(s): R13.10 - Dysphagia, unspecified (3) Leukocytosis Code(s): D72.829 - ELEVATED WHITE BLOOD CELL COUNT, UNSPECIFIED (4) Dehydration Code(s): E86.0 - DEHYDRATION (5) Anemia Code(s): D64.9 - ANEMIA, UNSPECIFIED (6) HTN (hypertension) Code(s): I10 - ESSENTIAL (PRIMARY) HYPERTENSION (7) Diabetes Code(s): E11.9 - TYPE 2 DIABETES MELLITUS WITHOUT COMPLICATIONS (8) Hypothyroid Code(s): E03.9 - HYPOTHYROIDISM, UNSPECIFIED Please refer to progress note written earlier today but in short Ms Gottlieb is a very pleasant 71 year old female who came in with Schatzki's ring causing dysphagia and odynophagia. She was seen by GI and underwent EGD with dilatation. She did well from this standpoint, however became hypoxic after the procedure. She also had a leukocytosis. There was concern for both fluid overload versus previous aspiration. She was given IV lasix and also started on rocephin. She was monitored overnight. She felt much improved. She was successfully weaned off of oxygen. She was seen by cardiology and ECHO was performed. Her ECHO was normal. She had an aspiraiton pneumonitis. She can safely be transitioned over to oral clindamycin. She should take probiotics with this. She tolerated her diet and is safe for discharge home. She should follow up with Dr Flood within 7 days for evaluation of pneumonitis and Dr Jackson for repeat EGD 32 minutes total spent in preparation of this discharge Condition: Good - Instructions Diet, Activity, Other Instructions: Avoid bulk meats and breads, chew slowly and thoroughly with small portioned bites followed by liquids. Diabetic diet. Continue previous activity. Referrals: Gene Barnes MD [Staff Physician] - Ross Jackson MD [Staff Physician] - Kyle Flood MD [Primary Care Provider] - Disposition: HOME - Home Medications Comprehensive Discharge Medication List: Ambulatory Orders Ca/D3/Mag#11/Zinc/Director Of Slot Operations/Lorenzo/Bor [Caltrate 600+D Plus Tablet] 1 each PO DAILY Dicyclomine HCl [Bentyl] 10 mg PO TID 04/07/17 Lactobacillus Combo No.13 [Probiotic Pearls Complete] 1 each PO DAILY 04/07/17 Levothyroxine Sodium [Levo-T] 100 mcg PO DAILY 04/07/17 Losartan Potassium 50 mg PO DAILY 04/07/17 Metformin HCl 500 mg PO BID 04/07/17 Metoprolol Succinate [Toprol XL -] 25 mg PO DAILY 04/07/17 Multivit,Tx Iron,Other Mins [Hjowpaqe-I-W with Minerals] 1 each PO DAILY Oxybutynin Chloride [Ditropan Xl] 15 mg PO DAILY 04/07/17 Pumpkin Seed Extract/Soy Germ [Azo Bladder Control Capsule] 300 mg PO DAILY Clindamycin [Cleocin -] 300 mg PO TID #21 capsule 04/08/17 Pantoprazole Sodium [Protonix -] 40 mg PO HS #30 tab.ec 04/08/17
--- NOTE | 2017-04-08 18:37 | PN ---
GI Progress Note Subjective: No acute events No abdominal pain Denies shortness of breath No abdominal pain - Objective Vital Signs: Vital Signs Temperature 98.9 F 04/08/17 17:00 Pulse Rate 96 H 04/08/17 17:22 Respiratory Rate 20 04/08/17 17:00 Blood Pressure 102/72 04/08/17 17:22 O2 Sat by Pulse Oximetry (%) 95 04/08/17 14:01 Constitutional: Calm Cardiovascular: Yes: Regular Rate and Rhythm Respiratory: Yes: Rhonchi (at right base) ...Auscultate: Yes: Normoactive Bowel Sounds ...Palpate: No: Tenderness Edema: No Neurological: Yes: Alert, Oriented Labs: CBC, BMP 04/08/17 05:35 04/08/17 05:35 INR, PTT INR 1.12 (0.82-1.09) 04/07/17 11:53 Problem List - Problems (1) Dysphagia Assessment/Plan: Suspected peptic stricture: S/P balloon dilation Await pathology results Advised chopped diet with avoidance of bulk meats/breads, well chewed food followed by liquids Pantoprazole 40mg once daily Advised she call Dr. Jackson's office to arrange follow-up as she will likely need further dilation Code(s): R13.10 - DYSPHAGIA, UNSPECIFIED Qualifiers: Dysphagia type: unspecified Qualified Code(s): R13.10 - Dysphagia, unspecified
--- NOTE | 2017-04-09 11:22 | PN ---
Progress Note (short form) - Note Progress Note: Anesthesia POD#2 S/P EGD/Dysempaction of food under GA Saturation dropped in the recovery room & chest congestion. CxR showed pulmonary edema,Lasix 20 mg given.patient improved. VSS,o2 saturation is stable. No further congestion. Nathalie Cameron
--- NOTE | 2017-04-09 14:14 | PATH ---
Surgical Pathology Report Patient Name: JENN ADEN [facility]. Rec. #: [id number] /Age/Gender: 1945 (Age: 71) / F Account: [id number] Location: 4 W TELEMETRY U Taken: 04/07/2017 Received: 04/08/2017 Reported: 04/09/2017 Physicians: Dominic Gamboa D.O. Specimen(s) Received A: BX ESOPHAGUS STRICTURE 35 CM B: BX ANTRUM Clinical History Dysphagia, food impaction Gastritis, esophageal structure Final Diagnosis A. ESOPHAGUS, STRICTURE AT 35 CM, BIOPSY: ULCERATED SQUAMOCOLUMNAR JUNCTIONAL MUCOSA WITH ASSOCIATED MARKED ACTIVE AND CHRONIC INFLAMMATION, REFLUX TYPE CHANGES AND FOCAL INTESTINAL METAPLASIA (SEE COMMENT). NEGATIVE FOR DYSPLASIA. NO FUNGAL ORGANISMS IDENTIFIED WITH PAS STAIN. Comment: The findings may be compatible with Estrada's esophagus in proper endoscopic settings. Endoscopic correlations and follow up are suggested. Prior history of histologic findings suggestive of eosinophilic esophagitis ([id number]) is noted. The number of eosinophils in the current biopsy appears to be below the commonly used threshold for eosinophilic esophagitis (15-20/HPF), although the specimen is limited to squamocolumnar junctional mucosa. Stains for viral organisms are pending; results will be reported in an addendum. B. STOMACH, ANTRUM, BIOPSY: GASTRIC ANTRAL MUCOSA WITH MODERATE CHRONIC GASTRITIS AND REACTIVE GASTROPATHY. IMMUNOSTAIN FOR H. PYLORI IS NEGATIVE FOR ORGANISMS. Electronically Signed Jeffery Da Silva M.D. Addendum Reported: 04/13/2017 Addendum Diagnosis Immunohistochemical stains for CMV and HSV are performed at the [facility], [place] ([id number]) on block A1 and interpreted at [facility] show no CMV or HSV viral inclusions. Jeffery Da Silva M.D. Gross Description A. Received in formalin, labeled "biopsy stricture at 35 cm" are 5 ni, irregular portions of soft tissue ranging from 0.1-0.3 cm in greatest dimension. The specimens are submitted in toto in one cassette. B. Received in formalin, labeled "biopsy antrum" are 3 ni, irregular portions of soft tissue ranging from 0.2-0.3 cm in greatest dimension. The specimens are submitted in toto in one cassette. DL/04/08/201704/08/2017
== END 2017-04-08 19:27 | disposition home or self-care (01) | DRG 391 ==
LOC: JER 09:31 → JERBED 12:53 → J4W 18:22
PROVIDERS: ADMIT Internal Medicine; ATTEND Internal Medicine
PROC: 0DB38ZX Excision of Lower Esophagus, Via Natural or Artificial Opening Endoscopic, Diagnostic (ICD-10-PCS; principal; 2017-04-08)
PROC: 0DB68ZX Excision of Stomach, Via Natural or Artificial Opening Endoscopic, Diagnostic (ICD-10-PCS; 2017-04-08)
PROC: 0D758DZ Dilation of Esophagus with Intraluminal Device, Via Natural or Artificial Opening Endoscopic (ICD-10-PCS; 2017-04-08)
PROC: 3E0F7GC Introduction of Other Therapeutic Substance into Respiratory Tract, Via Natural or Artificial Opening (ICD-10-PCS; 2017-04-08)
DX: K22.2 Esophageal obstruction (principal); J69.0 Pneumonitis due to inhalation of food and vomit; J95.89 Other postprocedural complications and disorders of respiratory system, not elsewhere classified; K44.9 Diaphragmatic hernia without obstruction or gangrene; K29.70 Gastritis, unspecified, without bleeding; R13.10 Dysphagia, unspecified; K21.9 Gastro-esophageal reflux disease without esophagitis; E11.9 Type 2 diabetes mellitus without complications; E78.00 Pure hypercholesterolemia, unspecified; I10 Essential (primary) hypertension; E86.0 Dehydration; R00.0 Tachycardia, unspecified; E03.9 Hypothyroidism, unspecified; D72.829 Elevated white blood cell count, unspecified; D64.9 Anemia, unspecified; Y83.8 Other surgical procedures as the cause of abnormal reaction of the patient, or of later complication, without mention of misadventure at the time of the procedure; Y92.239 Unspecified place in hospital as the place of occurrence of the external cause; R09.02 Hypoxemia; Z79.84 Long term (current) use of oral hypoglycemic drugs
CPT/HCPCS: 36415; 71010-TC; 71250-TC; 80048; 80053; 82272; 83735; 84100; 85025; 85610; 86850; 86900; 86901; 88305-TC; 93005; 93010; 93306-TC; 94010; 94761; 99285-25

== ENCOUNTER 2017-05-07 08:59 | Day surgery (SDC) | payer OTHER ==
[2017-05-06 11:32] VITALS: BMI 21.7
[2017-05-07 10:50] VITALS: TEMP 97.6
[2017-05-07 12:11] VITALS: BP 112/60; PULSE 79
--- NOTE | 2017-05-10 11:22 | PATH ---
Surgical Pathology Report Patient Name: JENN ADEN [facility]. Rec. #: [id number] /Age/Gender: 1945 (Age: 71) / F Account: [id number] Location: [facility]ENDOSCOPY Taken: 05/07/2017 Received: 05/07/2017 Reported: 05/10/2017 Physicians: Ross Jackson M.D. Specimen(s) Received A: BX STRICTURE IN ESOPHAGUS B: BX MID ESOPHAGUS C: BX ANTRUM Clinical History Dysphagia, anemia Short esophageal stricture, hiatal hernia, antral gastritis, GERD Final Diagnosis A. ESOPHAGUS, STRICTURE, BIOPSY: SQUAMOUS MUCOSA WITH PAPILLOMATOSIS AND INCREASED INTRAEPITHELIAL EOSINOPHILS (SEE COMMENT). B. MID ESOPHAGUS, BIOPSY: SQUAMOUS MUCOSA WITH PAPILLOMATOSIS AND SUPERFICIAL ULCERATION. C. STOMACH, ANTRUM, BIOPSY: MILD CHRONIC GASTRITIS WITH REACTIVE GASTROPATHY AND FOCAL INTESTINAL METAPLASIA. NO DYSPLASIA IDENTIFIED. IMMUNOSTAIN FOR H. PYLORI IS NEGATIVE. Comment: Although the biopsy in specimen A has greater than 15 eosinophils per high power field, a definite diagnosis of eosinophilic esophagitis cannot be rendered without clinically excluding reflux esophagitis as a possible etiology. Recommend correlation with clinical findings and follow up is clinically indicated. Electronically Signed Tony Shelley M.D. Gross Description A. Received in formalin, labeled "biopsy esophageal stricture" are 4 ni, irregular portions of soft tissue ranging from 0.1-0.4 cm. in greatest dimension. The specimens are submitted in toto in one cassette. B. Received in formalin, labeled "biopsy midesophagus" are 2 ni, irregular portions of soft tissue measuring 0.2 and 0.3 cm. in greatest dimension. The specimens are submitted in toto in one cassette. C. Received in formalin, labeled "biopsy antrum" is a ni, irregular portion of soft tissue measuring 0.4 cm. in greatest dimension. The specimen is submitted in toto in one cassette. 05/07/201705/07/2017
== END 2017-05-07 12:15 | disposition home or self-care (01) ==
LOC: JASU-ENDO 08:59
PROVIDERS: ATTEND Internal Medicine Gastroenterology
PROC: 0DB68ZX Excision of Stomach, Via Natural or Artificial Opening Endoscopic, Diagnostic (ICD-10-PCS; 2017-05-07)
PROC: 0DB28ZX Excision of Middle Esophagus, Via Natural or Artificial Opening Endoscopic, Diagnostic (ICD-10-PCS; 2017-05-07)
PROC: 0D748ZZ Dilation of Esophagogastric Junction, Via Natural or Artificial Opening Endoscopic (ICD-10-PCS; 2017-05-07)
PROC: 0DB38ZX Excision of Lower Esophagus, Via Natural or Artificial Opening Endoscopic, Diagnostic (ICD-10-PCS; principal; 2017-05-07 10:00)
DX: D13.0 Benign neoplasm of esophagus (principal); K20.0 Eosinophilic esophagitis; K29.50 Unspecified chronic gastritis without bleeding; K31.9 Disease of stomach and duodenum, unspecified
CPT/HCPCS: 88305-TC; 88342-TC

== ENCOUNTER 2017-05-28 07:08 | Day surgery (SDC) | payer OTHER ==
[2017-05-27 10:41] VITALS: BMI 21.7
[2017-05-28] MEDS ORDERED: ePHEDrine SULFATE 50 MG/1 ML AMPULE ONE ×2 (07:44→08:29)
[2017-05-28] MEDS ORDERED: GLYCOPYRROLATE 0.2 MG/1 ML VIAL ONE (07:44)
[2017-05-28] MEDS ORDERED: SUCCINYLCHOLINE CHLORIDE 200 MG/10 ML VIAL ONE (07:44)
[2017-05-28] MEDS ORDERED: PROPOFOL 20 ML ONE ×5 (07:44)
[2017-05-28] MEDS ORDERED: ATROPINE SULFATE 1 MG/10 ML DISP.SYRIN ONE (07:45)
[2017-05-28] MEDS ORDERED: LIDOCAINE HCL 2% (20ML MULTI-DOSE VIAL) NR ONE (07:47)
[2017-05-28 08:33] VITALS: TEMP 97
[2017-05-28 10:44] VITALS: BP 102/57; PULSE 83
--- NOTE | 2017-05-31 12:39 | PATH ---
Surgical Pathology Report Patient Name: JENN ADEN [facility]. Rec. #: [id number] /Age/Gender: 1945 (Age: 71) / F Account: [id number] Location: [facility]-ENDOSCOPY Taken: 05/28/2017 Received: 05/28/2017 Reported: 05/31/2017 Physicians: Ross Jackson M.D. Specimen(s) Received POLYP Clinical History Anemia Rectal polyp Final Diagnosis RECTUM, POLYP, BIOPSY/POLYPECTOMY: FRAGMENTS OF HYPERPLASTIC TYPE POLYP WITH FOCAL FEATURES OF SESSILE SERRATED ADENOMA. Electronically Signed Jeffery Da Silva M.D. Gross Description Received in formalin, labeled "biopsy rectal polyp" are 3 ni, irregular portions of soft tissue ranging from 0.2-0.6 cm in greatest dimension. The specimens are submitted in toto in one cassette. /05/28/201705/28/2017
== END 2017-05-28 09:36 | disposition home or self-care (01) ==
LOC: JASU-ENDO 07:08
PROVIDERS: ATTEND Internal Medicine Gastroenterology
PROC: 0DBP8ZX Excision of Rectum, Via Natural or Artificial Opening Endoscopic, Diagnostic (ICD-10-PCS; principal; 2017-05-28 08:00)
DX: Z86.010 Personal history of colon polyps (principal); K62.1 Rectal polyp; D12.8 Benign neoplasm of rectum; K57.30 Diverticulosis of large intestine without perforation or abscess without bleeding; K64.8 Other hemorrhoids; D64.9 Anemia, unspecified; R19.5 Other fecal abnormalities
CPT/HCPCS: 88305-TC

== ENCOUNTER 2020-08-07 06:37 | Emergency (ER) | payer OTHER ==
[2020-08-07 07:01] VITALS: BMI 21.4
--- OUTSIDE RECORDS SUMMARY | 2020-08-07 07:13 | XMS ---
:1945 Author Organization [facility] Support Name Relationship Address Phone RE Unavailable Unavailable Unavailable ELLIOTT, GENE FRIEND [address] [place] [address] Re-disclosure Warning The records that you are about to access may contain information from federally- assisted alcohol or drug abuse programs. If such information is present, then the following federally mandated warning applies: This information has been disclosed to you from records protected by federal confidentiality rules (42 CFR part 2). The federal rules prohibit you from making any further disclosure of this information unless further disclosure is expressly permitted by the written consent of the person to whom it pertains or as otherwise permitted by 42 CFR part 2. A general authorization for the release of medical or other information is NOT sufficient for this purpose. The Federal rules restrict any use of the information to criminally investigate or prosecute any alcohol or drug abuse patient.The records that you are about to access may contain highly sensitive health information, the redisclosure of which is protected by Article 27-F of the [facility] Public Health law. If you continue you may haveaccess to information: Regarding HIV / AIDS; Provided by facilities licensed or operated by the [facility] Office of Mental Health; or Provided by the [facility] Office for People With Developmental Disabilities. If such information is present, then the following [facility] mandated warning applies: This information has been disclosed to you from confidential records which are protected by state law. State law prohibits you from making any further disclosure of this information without the specific written consent of the person to whom it pertains, or as otherwise permitted by law. Any unauthorized further disclosure in violation of state law may result in a fine or correction sentence or both. A general authorization for the release of medical or other information is NOT sufficient authorization for further disclosure. Insurance Providers Payer name Policy type Policy ID Covered Covered democrat's Policy P layo / Coverage democrat ID relationship to [facility] ormation type [place] [employer] [id number] [facility] (MEDICARE)
[2020-08-07] MEDS ORDERED: DIPHTH,PERTUSS(ACELL),TET 0.5 ML DISP.SYRIN IM ONE ×2 (07:28→07:40)
--- NOTE | 2020-08-07 08:08 | PDOC ---
Documentation entered by Nas De Guzman SCRIBE, acting as scribe for Nadia Perez MD. Nadia Perez MD: This documentation has been prepared by the Gab siegel Xhesika, SCRIBE, under my direction and personally reviewed by me in its entirety. I confirm that the documentation accurately reflects all work, treatment, procedures, and medical decision making performed by me. History of Present Illness - General Chief Complaint: Injury Stated Complaint: FALL Time Seen by Provider: 08/07/20 07:15 History Source: Patient Exam Limitations: No Limitations - History of Present Illness Initial Comments: 08/07/20 07:30 HPI The patient is a 74y/o F with a pmh of hypothyroidism, HTN, DM, gerd and overactive bladder who presents to the the ED with nasal-bridge abrasion and L forehead swelling s/p fall. Pt states she puts a draft at the bottom of her door, went to her door this morning, slipped and landed on her face. Pt denies LOC. Pt denies any nausea, dizziness, SOB or CP prior to her fall or after her fall. Pt states she immediately got up but endorsed a mild nose bleed which resolved prior to her arrival to the ED. Pt states she saw her PMD last week and got her flu shot. Pt notes her tetanus is not up to date. Denies fever, chills, chest pain, SOB, palpitation, dizziness, weakness, N, V, D, abdominal pain, bladder and bowel problems, focal weakness/paresthesias, leg swelling/pain, rash. Pt denies eye pain, vision changes neck pain or back pain. No sick contacts or travel. Allergies: Sulfa Past Medical History/PSH: hypothyroidism, HTN, DM, gerd and overactive bladder Social history: Lives with family. No tobacco, ETOH or drug use. Meds: as documented in EMR Family history: noncontributory PMD: Dr. Mika Flood ROS: Constitutional: no fevers or chills. HEENT: no headache, no dizziness. No visual or hearing changes. No dental pain. No neck pain. +nasal-bridge abrasion. +L forehead swelling CVS: no chest pain or palpitations, no syncope Resp: no shortness of breath Abdomen: no abdominal pain Genitorurinary: no urinary retention or incontinence, no dysuria, urgency or frequency. no hematuria MUSCULOSKELETAL: No joint pain and swelling. No muscle pain/arthralgias. Back: no back pain SKIN: no redness or skin changes, no discharge. Hematologic: no easy bruising/bleeding. NEUROLOGIC: No weakness, numbness or tingling. Allergic/Immunologic: no allergies All other systems reviewed and negative, or as documented in HPI. PE: General: GCS 15 NAD, well appearing HEENT: NCAT, PERRL, EOMI. Airway intact. No battles sign or raccoon eyes. No e/o ocular. Dentition intact. No e/o septal hematoma. + superficial abrasion and tenderness of nasal bridge. + L frontal forehead swelling and tenderness. Neck: neck supple, no midline C spine tenderness or deformity, ROM intact. No anterior mass or crepitus, trachea midline. Resp: Lungs clear bilaterally Chest: no clavicle or chest wall tenderness or crepitus CVS: RRR, 2+ pulses throughout. Abdomen: Abdomen soft, nontender, nondistended. Back: Back nontender, no midline spinal tenderness along cervical/thoracic/lumbar spine, FROM, no stepoffs. MSK: Pelvis stable, Extremities symmetric, no focal areas of tenderness or deformities, proximal and distally; no pain on axial loading. FROM in all extrem. Neuro: Alert, oriented appropriately. CN II-XII grossly symmetric and intact. no focal neuro deficits. Sensation and strength intact throughout. Gait normal/stable. Skin: intact, normal color and well perfused. No seatbelt signs at neck, chest or abdomen. 08/07/20 08:19 Past History - Medical History Allergies/Adverse Reactions: Allergies Allergy/AdvReac Type Severity Reaction Status Date / Time Sulfa (Sulfonamide Allergy Intermediate hives Verified 08/07/20 07:01 Antibiotics) [Sulfa(Sulfonamide Antibiotics)] Home Medications: Ambulatory Orders Geovanni/D3/Mag11/Zinc/Hematology Oncology Consultant/Lorenzo/Bor [Caltrate 600+D Plus Tablet] 1 each PO BID 04/07/17 Lactobacillus Combo No.13 [Probiotic Pearls Complete] 1 each PO DAILY 04/07/17 Losartan Potassium 50 mg PO DAILY 04/07/17 Metoprolol Succinate [Toprol XL -] 25 mg PO BID 04/07/17 metFORMIN HCL [Metformin HCl] 500 mg PO BID 04/07/17 Simvastatin 20 mg PO DAILY 05/07/17 Levothyroxine [Synthroid -] 100 mcg PO DAILY 05/27/17 Multivitamins [Multivit ([facility] Formulary)] 1 tab PO DAILY 05/27/17 [place]-3 Fatty Acids [Fish Oil] 300 mg PO BID 05/27/17 Pantoprazole Sodium 40 mg PO DAILY 05/27/17 Aspirin Coated [Ecotrin -] 81 mg PO DAILY 05/28/17 Dicyclomine HCl [Bentyl -] 10 mg PO Q6H 08/07/20 Mirabegron [Myrbetriq] 50 mg PO DAILY 08/07/20 Oxybutynin Chloride [Oxybutynin Chloride ER] 15 mg PO DAILY 08/07/20 Anemia: No Asthma: No Cancer: No Cardiac Disorders: No CVA: No COPD: (PNEUMONIA) CHF: No Dementia: No Diabetes: Yes (NIDDM) GI Disorders: Yes (GERD, STRICTURE IN ESOPHOGUS ,DIVERTICULITIS;SCHATZKI RING) Disorders: Yes (INTERSTITIAL CYSTITIS) HTN: Yes Hypercholesterolemia: Yes Liver Disease: No Seizures: No Thyroid Disease: Yes (HYPO) - Surgical History Abdominal Surgery: No Appendectomy: No Cardiac Surgery: No Cholecystectomy: No Lung Surgery: No Neurologic Surgery: No Orthopedic Surgery: (BROKEN LEFT ARM) - Reproductive History Is Patient Now?: No - Psycho-Social/Smoking History Smoking History: Never smoked Have you smoked in the past 12 months: No If you are a former smoker, when did you quit?: 1996 - Substance Abuse Hx (Audit-C & DAST Scrn) How often the patient has a drink containing alcohol: Never Score: In Men: 4 or > Positive; In Women: 3 or > Positive: 0 Screen Result (Pos requires Nsg. Audit-10AR): Negative In the last yr the pt used illegal drug/Rx for NonMed reason: No Score: Yes response is considered Positive: 0 Screen Result (Positive result requires Nsg. DAST-10): Negative *Physical Exam - Vital Signs Last Vital Signs Temp Pulse Resp BP Pulse Ox 98.4 F 98 H 17 126/73 98 08/07/20 06:57 08/07/20 06:57 08/07/20 06:57 08/07/20 06:57 08/07/20 06:57 Medical Decision Making - Medical Decision Making 08/07/20 08:20 Vital Signs Temp Pulse Resp BP Pulse Ox 98.4 F 98 H 17 126/73 98 08/07/20 06:57 08/07/20 06:57 08/07/20 06:57 08/07/20 06:57 08/07/20 06:57 vitals wnl, reassuring ddx. ICH, nasal fx, skull fx, contusion, cervical spine injury/fx, SDH. head CT, c spine and facial bones to eval for injuries boostrix given, last unknown no analgesia required neuro intact, gcs 15 08/07/20 09:09 CT head negative for acute pathology, no evidence of facial bone or nasal bone fracture. Cervical spine negative for fracture or subluxation, degenerative changes and arthritis is noted fall safety prevention advised bacitracin to her face/abrasion. no s/s infection. monitor for concussion sx/closed head injury. Pt to be discharged in stable condition. Patient made aware of clinical impression, treatment recommendations and disposition plan, return precautions discussed (including but not limited to new or persistent/worsening symptoms, pain, fevers, or signs of infection, chest pain, respiratory distress, inability to tolerate oral intake, dehydration, syncope, or neurologic changes). Follow up with PMD as recommended, follow up information provided, take medications as instructed for duration of time. continue with supportive care, avoid triggers and precipitants. All questions answered to patient's satisfaction and expressed understanding and comfort with this. At the time of discharge, the patient is alert, clinically improved, tolerating po and verbalizes understanding of instructions, satisfied with the care received and felt comfortable with the plan. Patient does not suffer from an acute life-threatening medical condition at this time and is safe for outpatient follow-up. 08/07/20 09:09 Discharge - Discharge Information Problems reviewed: Yes Clinical Impression/Diagnosis: Contusion of face Qualifiers: Encounter type: initial encounter Qualified Code(s): S00.83XA - Contusion of other part of head, initial encounter Nose abrasion Qualifiers: Encounter type: initial encounter Qualified Code(s): S00.31XA - Abrasion of nose, initial encounter Closed head injury Qualifiers: Encounter type: initial encounter Qualified Code(s): S09.90XA - Unspecified injury of head, initial encounter Condition: Improved Disposition: HOME - Admission No - Follow up/Referral Referrals: Kyle Flood MD [Primary Care Provider] - - Patient Discharge Instructions Patient Printed Discharge Instructions: DI for Closed Head Injury, How to Prevent Falls, DI for Abrasion, DI for Contusion Additional Instructions: FALL PREVENTION AT HOME WHAT YOU NEED TO KNOW There are many different factors that can increase your risk of falls. Falls can happen any time, but the majority of them occur in the home. Fall prevention includes ways to make your home and other areas safer. It also includes ways you can move more carefully to prevent a fall. Health conditions that cause changes in your blood pressure, vision, or muscle strength and coordination may increase your risk for falls. Medicines, including anesthesia, may increase your risk for falls if they make you dizzy, weak, or sleepy. FALL PREVENTION TIPS Stand or sit up slowly. This may help you keep your balance and prevent falls. Do not walk and talk at the same time. Concentrate on the task of walking and continue the conversation after you've reached a safe place. Wear shoes that fit well and have soles that permastone mechanic. Wear shoes both inside and outside. Use slippers with good permastone mechanic. Avoid shoes with high heels. Use assistive devices as directed. Your healthcare provider may suggest that you use a cane or walker to help you keep you balance. Be sure you have adequate lighting throughout your house. Keep paths clear. Remove books, shoes and other objects from walkways and stairs. Keep cords for telephones and lamps out of the way so you dont need to walk over them. Remove small rugs or secure them with double-sided tape. This will prevent you from tripping. Use a nightlight when getting out of bed at night. Stay active to maintain overall strength and endurance. Know your limitations. If there is a task you can not complete with ease, do not risk a fall by trying to complete it. Call 911 or have someone else call if: You have fallen and are unconscious You have fallen and cannot move part of your body Contact your healthcare provider if: You have fallen and have pain or a headache You have questions or concerns about your condition or care. - Post Discharge Activity
[2020-08-07 09:59] VITALS: BP 160/83; PULSE 110; TEMP 98
== END 2020-08-07 09:59 | disposition home or self-care (01) ==
LOC: JER 06:37
PROC: 3E0234Z Introduction of Serum, Toxoid and Vaccine into Muscle, Percutaneous Approach (ICD-10-PCS; principal; 2020-08-07)
DX: S00.83XA Contusion of other part of head, initial encounter (principal); S00.31XA Abrasion of nose, initial encounter; S09.90XA Unspecified injury of head, initial encounter
CPT/HCPCS: 70450-TC; 70486-TC; 72125-TC; 90715; 99284-25

== ENCOUNTER 2020-11-06 04:21 | Day surgery (SDC) | payer OTHER | END 2020-11-06 11:32 | disposition home or self-care (01) | LOC: JASU-ENDO 04:21 | PROC: 0DB98ZX Excision of Duodenum, Via Natural or Artificial Opening Endoscopic, Diagnostic (ICD-10-PCS; 2020-11-06) | PROC: 0DB68ZX Excision of Stomach, Via Natural or Artificial Opening Endoscopic, Diagnostic (ICD-10-PCS; 2020-11-06) | PROC: 0DB58ZX Excision of Esophagus, Via Natural or Artificial Opening Endoscopic, Diagnostic (ICD-10-PCS; 2020-11-06) | PROC: 0D758ZZ Dilation of Esophagus, Via Natural or Artificial Opening Endoscopic (ICD-10-PCS; principal; 2020-11-06 09:00) | CPT/HCPCS: 88305-TC; 88342-TC ==

== ENCOUNTER 2022-09-29 13:10 | Inpatient (IN) | payer OTHER ==
[2022-09-29 14:58] LABS: BASO % 0.3 % (0-2.0); EOS % 0.1 % (0-4.5); HEMATOCRIT 40.5 % (32.4-45.2); HEMOGLOBIN 13.6 GM/dL (10.7-15.3); MCH 31.9 pg (25.7-33.7); MCHC 33.5 g/dl (32.0-36.0); MEAN PLT VOLUME 8.8 fl (7.5-11.1); MONO % 11.3 % (3.8-10.2); NEUT % 82.3 % (42.8-82.8); PLATELET COUNT 344 10^3/uL (134-434); RBC 4.26 M/mm3 (3.60-5.2); RDW 13.3 % (11.6-15.6); WHITE BLOOD COUNT 17.9 K/mm3 (4.0-10.0)
[2022-09-29] MEDS ORDERED: ACETAMINOPHEN 500 MG TABLET (FP) PO ONE (15:00)
[2022-09-29 15:08] LABS: EPI CELLS 0-4 /HPF; URINE RBC 50-70 /hpf (0-4); URINE WBC 15-20 (NEGATIVE)
[2022-09-29 15:09] LABS: URINE BACTERIA RARE /hpf (NEGATIVE)
[2022-09-29] MEDS ORDERED: SODIUM CHLORIDE IV ONE ×2 (15:10→19:24)
[2022-09-29] MEDS ORDERED: ACETAMINOPHEN 500 MG TABLET (FP) ONE (15:10)
[2022-09-29] MEDS ORDERED: PIPERACILLIN/TAZOB 4.5 GM 4.5 GM in DEXTROSE 5%-WATER 100 ML IVPB ONE (15:14)
[2022-09-29 15:18] LABS: CALCIUM 9.4 mg/dL (8.5-10.1)
[2022-09-29] MEDS ORDERED: ACETAMINOPHEN INJECTION 100 ML IVPB ONE (15:18)
[2022-09-29 15:19] LABS: ALBUMIN 4.1 g/dl (3.4-5.0); BLOOD UREA NITROGEN 27.2 mg/dL (7-18)
[2022-09-29 15:22] LABS: CREATININE 1.4 mg/dL (0.55-1.3)
[2022-09-29 15:23] LABS: BILIRUBIN,TOTAL 0.6 mg/dL (0.2-1); TOT PROT 7.7 g/dl (6.4-8.2)
[2022-09-29] MEDS ORDERED: ACETAMINOPHEN 1000 MG/100 ML BAG IVPB ONE (15:29)
[2022-09-29 15:35] LABS: URINE APPEARANCE CLOUDY; URINE BILIRUBIN 1+ (NEGATIVE); URINE COLOR RED; URINE GLUCOSE (UA) TRACE (NEGATIVE); URINE KETONE 2+ (NEGATIVE)
[2022-09-29 15:36] LABS: URINE LEUK ESTERASE 2+ (NEGATIVE); URINE NITRITE POSITIVE (NEGATIVE); URINE PROTEIN 2+ (NEGATIVE); URINE UROBILINOGEN 0.2 mg/dL (0.2-1.0)
[2022-09-29] MEDS ORDERED: PIPERACILLIN/TAZOB 4.5 GM 4.5 GM/100 ML BAG IVPB ONE (15:49)
[2022-09-29 16:36] LABS: VENOUS BASE EXCESS -3.7 mmol/L (-2-2); VENOUS O2 SATURATION 77.9 % (70-80); VENOUS PCO2 31.2 mmHg (38-52); VENOUS PH 7.418 (7.310-7.410)
[2022-09-29 17:21] LABS: LACTIC ACID 2.5 mmol/L (0.4-2.0)
[2022-09-29] MEDS ORDERED: SODIUM CHLORIDE 1,000 ML IV SCH (21:45)
[2022-09-29] MEDS: HEPARIN NA (PORCINE) 5,000 UNITS/ML 1ML VIAL SQ SCH (21:54)
[2022-09-29] MEDS: metoPROLOL SUCCINATE 25 MG TAB.SR.24H (FP) PO SCH (21:55)
[2022-09-29] MEDS: ATORVASTATIN CA 10 MG TABLET (FP) PO SCH (21:55)
[2022-09-30] MEDS: PIPERACILLIN/TAZOB 3.375 GM 3.375 GM in DEXTROSE 5%-WATER - 50 ML IVPB SCH ×3 (01:10→18:38)
[2022-09-30] MEDS ORDERED: PIPERACILLIN/TAZOB 3.375 GM 3.375 GM in DEXTROSE 5%-WATER - 50 ML IVPB SCH (02:00)
[2022-09-30] MEDS: HEPARIN NA (PORCINE) 5,000 UNITS/ML 1ML VIAL SQ SCH ×3 (06:05→21:07)
[2022-09-30] MEDS: metFORMIN HCL 500 MG TABLET (FP) PO SCH ×2 (06:08→17:08)
[2022-09-30] MEDS: LEVOTHYROXINE NA 100 MCG TABLET (FP) PO SCH (06:08)
[2022-09-30] MEDS ORDERED: VANCOMYCIN 1 GM/200 ML PREMIX BAG (RESTRICTED TO ID ONLY) IVPB ONE (08:45)
[2022-09-30 09:12] LABS: HEMATOCRIT 36.3 % (32.4-45.2); HEMOGLOBIN 11.9 GM/dL (10.7-15.3); MCH 31.5 pg (25.7-33.7); MCHC 32.8 g/dl (32.0-36.0); MEAN PLT VOLUME 9.1 fl (7.5-11.1); PLATELET COUNT 284 10^3/uL (134-434); RBC 3.78 M/mm3 (3.60-5.2); RDW 13.6 % (11.6-15.6); WHITE BLOOD COUNT 13.6 K/mm3 (4.0-10.0)
[2022-09-30] MEDS: LOSARTAN POTASSIUM 50 MG TABLET PO SCH (09:21)
[2022-09-30] MEDS: metoPROLOL SUCCINATE 25 MG TAB.SR.24H (FP) PO SCH ×2 (09:21→21:07)
[2022-09-30 09:57] LABS: BLOOD UREA NITROGEN 18.8 mg/dL (7-18)
[2022-09-30 09:58] LABS: ALBUMIN 3.4 g/dl (3.4-5.0); CALCIUM 8.4 mg/dL (8.5-10.1); MAGNESIUM 1.7 mg/dL (1.8-2.4)
[2022-09-30 10:00] LABS: CREATININE 1.3 mg/dL (0.55-1.3); PHOSPHOROUS 2.8 mg/dL (2.5-4.9)
[2022-09-30 10:02] LABS: BILIRUBIN,TOTAL 0.7 mg/dL (0.2-1); TOT PROT 6.2 g/dl (6.4-8.2)
[2022-09-30] MEDS ORDERED: ACETAMINOPHEN 1000 MG/100 ML BAG IVPB ONE (12:30)
[2022-09-30] MEDS ORDERED: MAGNESIUM SULF 50% (8.12 MEQ/2 ML-1 GM VIAL) IVPB ONE (13:45)
[2022-09-30] MEDS ORDERED: SODIUM CHLORIDE 0.45% 1,000 ML IV SCH (15:30)
[2022-09-30 15:52] VITALS: BMI 20.4
[2022-09-30] MEDS: ATORVASTATIN CA 10 MG TABLET (FP) PO SCH (21:07)
[2022-09-30] MEDS ORDERED: LIDOCAINE 5% TOPICAL PATCH TP ONE (23:32)
[2022-09-30] MEDS: ACETAMINOPHEN 500 MG TABLET (FP) PO PRN (23:44)
[2022-10-01] MEDS: PIPERACILLIN/TAZOB 3.375 GM 3.375 GM in DEXTROSE 5%-WATER - 50 ML IVPB SCH ×3 (01:28→17:22)
[2022-10-01] MEDS: HEPARIN NA (PORCINE) 5,000 UNITS/ML 1ML VIAL SQ SCH ×3 (05:40→21:57)
[2022-10-01] MEDS: LEVOTHYROXINE NA 100 MCG TABLET (FP) PO SCH (06:09)
[2022-10-01] MEDS: metFORMIN HCL 500 MG TABLET (FP) PO SCH ×2 (06:09→17:00)
[2022-10-01] MEDS: ACETAMINOPHEN 500 MG TABLET (FP) PO PRN (09:15)
[2022-10-01] MEDS: metoPROLOL SUCCINATE 25 MG TAB.SR.24H (FP) PO SCH ×2 (09:15→21:57)
[2022-10-01] MEDS: LOSARTAN POTASSIUM 50 MG TABLET PO SCH (09:15)
[2022-10-01 11:06] LABS: BASO % 0.5 % (0-2.0); EOS % 1.5 % (0-4.5); HEMATOCRIT 34.4 % (32.4-45.2); HEMOGLOBIN 11.5 GM/dL (10.7-15.3); LYMPH % 5.3 % (8-40); MCH 32.3 pg (25.7-33.7); MCHC 33.5 g/dl (32.0-36.0); MEAN CELL VOLUME 96.4 fl (80-96); MEAN PLT VOLUME 8.7 fl (7.5-11.1); MONO % 10.1 % (3.8-10.2); NEUT % 82.6 % (42.8-82.8); PLATELET COUNT 267 10^3/uL (134-434); RBC 3.57 M/mm3 (3.60-5.2); RDW 13.2 % (11.6-15.6)
[2022-10-01 11:26] LABS: BLOOD UREA NITROGEN 16.1 mg/dL (7-18); CALCIUM 8.5 mg/dL (8.5-10.1)
[2022-10-01 11:27] LABS: MAGNESIUM 2.3 mg/dL (1.8-2.4)
[2022-10-01 11:30] LABS: CREATININE 1.3 mg/dL (0.55-1.3); PHOSPHOROUS 3.2 mg/dL (2.5-4.9)
[2022-10-01] MEDS: LIDOCAINE 5% TOPICAL PATCH TP SCH (11:33)
[2022-10-01] MEDS ORDERED: LIDOCAINE PATCH REMOVAL MC ONE (12:00)
[2022-10-01] MEDS: ATORVASTATIN CA 10 MG TABLET (FP) PO SCH (21:57)
[2022-10-01] MEDS: LIDOCAINE PATCH REMOVAL MC SCH (21:58)
[2022-10-02] MEDS: PIPERACILLIN/TAZOB 3.375 GM 3.375 GM in DEXTROSE 5%-WATER - 50 ML IVPB SCH ×3 (02:16→17:01)
[2022-10-02] MEDS: HEPARIN NA (PORCINE) 5,000 UNITS/ML 1ML VIAL SQ SCH ×3 (06:09→21:38)
[2022-10-02] MEDS: metFORMIN HCL 500 MG TABLET (FP) PO SCH ×2 (06:10→17:01)
[2022-10-02] MEDS: LEVOTHYROXINE NA 100 MCG TABLET (FP) PO SCH (06:10)
[2022-10-02] MEDS: LOSARTAN POTASSIUM 50 MG TABLET PO SCH (09:32)
[2022-10-02] MEDS: TAMSULOSIN HCL 0.4 MG CAP PO SCH (09:32)
[2022-10-02] MEDS: metoPROLOL SUCCINATE 25 MG TAB.SR.24H (FP) PO SCH ×2 (09:32→21:38)
[2022-10-02] MEDS: LIDOCAINE 5% TOPICAL PATCH TP SCH (09:32)
[2022-10-02 09:57] LABS: EOS % 4.7 % (0-4.5); HEMATOCRIT 35.1 % (32.4-45.2); HEMOGLOBIN 12.1 GM/dL (10.7-15.3); LYMPH % 15.1 % (8-40); MCH 32.9 pg (25.7-33.7); MCHC 34.5 g/dl (32.0-36.0); MEAN CELL VOLUME 95.3 fl (80-96); MEAN PLT VOLUME 8.8 fl (7.5-11.1); NEUT % 69.2 % (42.8-82.8); PLATELET COUNT 298 10^3/uL (134-434); RBC 3.69 M/mm3 (3.60-5.2); RDW 13.4 % (11.6-15.6); WHITE BLOOD COUNT 8.6 K/mm3 (4.0-10.0)
[2022-10-02 11:05] LABS: BLOOD UREA NITROGEN 15.9 mg/dL (7-18)
[2022-10-02 11:07] LABS: MAGNESIUM 1.9 mg/dL (1.8-2.4)
[2022-10-02 11:09] LABS: CREATININE 0.8 mg/dL (0.55-1.3); PHOSPHOROUS 3.6 mg/dL (2.5-4.9)
[2022-10-02] MEDS: ATORVASTATIN CA 10 MG TABLET (FP) PO SCH (21:38)
[2022-10-02] MEDS: LIDOCAINE PATCH REMOVAL MC SCH (22:30)
[2022-10-03] MEDS: PIPERACILLIN/TAZOB 3.375 GM 3.375 GM in DEXTROSE 5%-WATER - 50 ML IVPB SCH ×3 (01:12→17:17)
[2022-10-03] MEDS: HEPARIN NA (PORCINE) 5,000 UNITS/ML 1ML VIAL SQ SCH ×3 (06:01→21:11)
[2022-10-03] MEDS: metFORMIN HCL 500 MG TABLET (FP) PO SCH ×2 (06:15→17:17)
[2022-10-03] MEDS: LEVOTHYROXINE NA 100 MCG TABLET (FP) PO SCH (06:15)
[2022-10-03] MEDS: LIDOCAINE 5% TOPICAL PATCH TP SCH (09:28)
[2022-10-03] MEDS: LOSARTAN POTASSIUM 50 MG TABLET PO SCH (09:29)
[2022-10-03] MEDS: metoPROLOL SUCCINATE 25 MG TAB.SR.24H (FP) PO SCH ×2 (09:29→21:12)
[2022-10-03] MEDS: TAMSULOSIN HCL 0.4 MG CAP PO SCH (09:29)
[2022-10-03 09:35] LABS: BASO % 1.2 % (0-2.0); EOS % 5.9 % (0-4.5); HEMATOCRIT 34.3 % (32.4-45.2); HEMOGLOBIN 11.5 GM/dL (10.7-15.3); LYMPH % 16.1 % (8-40); MCHC 33.6 g/dl (32.0-36.0); MEAN CELL VOLUME 95.2 fl (80-96); NEUT % 65.8 % (42.8-82.8); PLATELET COUNT 312 10^3/uL (134-434); RDW 13.4 % (11.6-15.6); WHITE BLOOD COUNT 8.5 K/mm3 (4.0-10.0)
[2022-10-03 10:03] LABS: BLOOD UREA NITROGEN 17.9 mg/dL (7-18)
[2022-10-03 10:05] LABS: CALCIUM 9.2 mg/dL (8.5-10.1); MAGNESIUM 1.5 mg/dL (1.8-2.4)
[2022-10-03 10:06] LABS: CREATININE 0.9 mg/dL (0.55-1.3)
[2022-10-03] MEDS ORDERED: LACTOBACILLUS ACIDOPHILUS 1 TABLET PO ONE ×2 (13:13)
[2022-10-03] MEDS ORDERED: LACTOBACILLUS ACIDOPHILUS 1 TABLET PO SCH ×3 (13:15→22:00)
[2022-10-03] MEDS: PHENAZOPYRIDINE HCL 100 MG TABLET (FP) PO SCH ×2 (14:23→21:11)
[2022-10-03] MEDS: ATORVASTATIN CA 10 MG TABLET (FP) PO SCH (21:12)
[2022-10-03] MEDS: LIDOCAINE PATCH REMOVAL MC SCH (21:13)
[2022-10-04] MEDS: PIPERACILLIN/TAZOB 3.375 GM 3.375 GM in DEXTROSE 5%-WATER - 50 ML IVPB SCH ×2 (01:56→09:04)
[2022-10-04] MEDS: PHENAZOPYRIDINE HCL 100 MG TABLET (FP) PO SCH ×2 (06:32→14:34)
[2022-10-04] MEDS: HEPARIN NA (PORCINE) 5,000 UNITS/ML 1ML VIAL SQ SCH ×2 (06:33→14:30)
[2022-10-04] MEDS: LEVOTHYROXINE NA 100 MCG TABLET (FP) PO SCH (06:33)
[2022-10-04] MEDS: metFORMIN HCL 500 MG TABLET (FP) PO SCH (06:33)
[2022-10-04] MEDS: metoPROLOL SUCCINATE 25 MG TAB.SR.24H (FP) PO SCH (09:04)
[2022-10-04] MEDS: LOSARTAN POTASSIUM 50 MG TABLET PO SCH (09:05)
[2022-10-04] MEDS: LIDOCAINE 5% TOPICAL PATCH TP SCH (09:05)
[2022-10-04] MEDS: TAMSULOSIN HCL 0.4 MG CAP PO SCH (09:05)
[2022-10-04 09:19] LABS: BASO % 1.1 % (0-2.0); EOS % 5.8 % (0-4.5); HEMATOCRIT 33.1 % (32.4-45.2); HEMOGLOBIN 11.6 GM/dL (10.7-15.3); LYMPH % 15.7 % (8-40); MCH 33.2 pg (25.7-33.7); MCHC 34.9 g/dl (32.0-36.0); MEAN CELL VOLUME 94.9 fl (80-96); MEAN PLT VOLUME 8.6 fl (7.5-11.1); MONO % 10.5 % (3.8-10.2); NEUT % 66.9 % (42.8-82.8); PLATELET COUNT 324 10^3/uL (134-434); RBC 3.49 M/mm3 (3.60-5.2); WHITE BLOOD COUNT 8.8 K/mm3 (4.0-10.0)
[2022-10-04 09:55] LABS: ALBUMIN 3.4 g/dl (3.4-5.0); BLOOD UREA NITROGEN 14.7 mg/dL (7-18); CALCIUM 8.9 mg/dL (8.5-10.1); MAGNESIUM 1.6 mg/dL (1.8-2.4)
[2022-10-04 09:57] LABS: CREATININE 0.9 mg/dL (0.55-1.3)
[2022-10-04 09:58] LABS: BILIRUBIN,TOTAL 0.5 mg/dL (0.2-1)
[2022-10-04] MEDS ORDERED: MAGNESIUM 2GM/50ML STERILE WATER IVPB IVPB ONE (11:30)
[2022-10-04 13:39] VITALS: BP 115/61; PULSE 95; RESP 20; TEMP 98.6
== END 2022-10-04 15:48 | disposition home or self-care (01) | DRG 872 ==
LOC: JER 13:10 → JERBED 18:46 → J6S 21:24
PROVIDERS: ADMIT Internal Medicine; ATTEND Internal Medicine
DX: A41.9 Sepsis, unspecified organism (principal); N17.9 Acute kidney failure, unspecified; N13.30 Unspecified hydronephrosis; N10 Acute pyelonephritis; I10 Essential (primary) hypertension; E78.5 Hyperlipidemia, unspecified; E11.9 Type 2 diabetes mellitus without complications; R13.10 Dysphagia, unspecified; Z79.84 Long term (current) use of oral hypoglycemic drugs; E86.0 Dehydration; R31.29 Other microscopic hematuria; D64.9 Anemia, unspecified
CPT/HCPCS: 0241U-QW; 36415; 71045-TC-FY; 74176-TC; 76775-TC; 76856-TC; 80048; 80053; 81003; 82550; 82803; 82962; 83605; 83735; 84100; 84484; 85025; 85027; 86850; 86900; 86901; 87040; 87086; 87186; 87324; 87449; 93005; 93010; 94010; 99285-25; J1644

== ENCOUNTER 2024-05-08 09:47 | Emergency (ER) | payer OTHER ==
[2024-05-08 09:55] VITALS: BP 175/73; PULSE 85; RESP 18; TEMP 97.9; BMI 19.3
[2024-05-08 11:41] LABS: BASO % 0.4 % (0-2.0); EOS % 0.8 % (0-4.5); HEMATOCRIT 36.1 % (32.4-45.2); HEMOGLOBIN 12.2 GM/dL (10.7-15.3); LYMPH % 6.8 % (8-40); MCH 30.7 pg (25.7-33.7); MCHC 33.7 g/dl (32.0-36.0); MEAN CELL VOLUME 91.2 fl (80-96); MEAN PLT VOLUME 8.3 fl (7.5-11.1); MONO % 9.6 % (3.8-10.2); NEUT % 82.4 % (42.8-82.8); PLATELET COUNT 304 10^3/uL (134-434); RBC 3.96 M/mm3 (3.60-5.2); RDW 13.7 % (11.6-15.6); WHITE BLOOD COUNT 18.8 K/mm3 (4.0-10.0)
[2024-05-08 11:49] LABS: INR 1.08 (0.83-1.09); PROTHROMBIN TIME (PATIENT) 12.2 SEC (9.7-13.0)
[2024-05-08 11:52] LABS: ACTIVATED PTT 26.9 SECONDS (25.2-36.5)
[2024-05-08 12:00] LABS: POTASSIUM 3.9 mmol/L (3.5-5.1)
[2024-05-08 12:01] LABS: CALCIUM 9.2 mg/dL (8.5-10.1)
[2024-05-08 12:02] LABS: ALBUMIN 3.4 g/dl (3.4-5.0); BLOOD UREA NITROGEN 17.4 mg/dL (7-18)
[2024-05-08 12:05] LABS: CREATININE 0.6 mg/dL (0.55-1.3)
[2024-05-08 12:06] LABS: BILIRUBIN,TOTAL 0.4 mg/dL (0.2-1)
[2024-05-08] MEDS ORDERED: ACETAMINOPHEN INJECTION 100 ML IVPB ONE (12:48)
[2024-05-08] MEDS: ACETAMINOPHEN 1000 MG/100 ML BAG IVPB ONE (13:32)
[2024-05-08 13:48] LABS: EPI CELLS 10 /uL (0-25.1); HYALINE CASTS 1 /uL (0-3.1); URINE APPEARANCE CLEAR; URINE BACTERIA 2733 /uL (0-1359); URINE BILIRUBIN NEGATIVE (NEGATIVE); URINE COLOR DK YELLOW; URINE GLUCOSE (UA) 1+ (NEGATIVE); URINE KETONE NEGATIVE (NEGATIVE); URINE LEUK ESTERASE TRACE (NEGATIVE); URINE NITRITE NEGATIVE (NEGATIVE); URINE PROTEIN NEGATIVE (NEGATIVE); URINE RBC 17 /uL (0-23.9); URINE UROBILINOGEN 0.2 mg/dL (0.2-1.0); URINE WBC 51 /uL (0-25.8)
== END 2024-05-08 16:00 | disposition home or self-care (01) ==
LOC: JER 09:47
PROC: 3E033NZ Introduction of Analgesics, Hypnotics, Sedatives into Peripheral Vein, Percutaneous Approach (ICD-10-PCS; principal; 2024-05-08)
DX: K57.92 Diverticulitis of intestine, part unspecified, without perforation or abscess without bleeding (principal); R10.30 Lower abdominal pain, unspecified; Z20.822 Contact with and (suspected) exposure to COVID-19
CPT/HCPCS: 0241U-QW; 36415; 74177-TC; 80053; 81003; 83690; 84484; 85025; 85610; 85730; 87086; 87186; 93005; 93010; 99285-25; J0131; Q9967

== ENCOUNTER 2025-01-10 11:00 | Observation (INO) | payer OTHER ==
[2025-01-10 12:46] VITALS: BMI 22.1
[2025-01-10] MEDS ORDERED: CEFTRIAXONE 1 G/50 ML PREMIX 50 ML IVPB ONE (13:30)
[2025-01-10 13:32] LABS: VENOUS BASE EXCESS 0.4 mmol/L (-2-2); VENOUS O2 SATURATION 39.4 % (70-80); VENOUS PCO2 37.2 mmHg (38-52); VENOUS PH 7.434 (7.310-7.410)
[2025-01-10] MEDS: CEFTRIAXONE 1 GM in DEXTROSE 5%-WATER - 100 ML IVPB ONE (13:34)
[2025-01-10 13:41] LABS: INR 1.16 (0.83-1.09); PROTHROMBIN TIME (PATIENT) 12.8 SEC (9.7-13.0)
[2025-01-10 13:44] LABS: ACTIVATED PTT 25.3 SECONDS (25.2-36.5)
[2025-01-10 14:57] LABS: ALBUMIN 3.5 g/dl (3.4-5.0)
[2025-01-10 15:02] LABS: BILIRUBIN,TOTAL 0.5 mg/dL (0.2-1); CREATININE 0.8 mg/dL (0.55-1.3); TOT PROT 6.9 g/dl (6.4-8.2)
[2025-01-10] MEDS: SODIUM CHLORIDE 0.9% 500 ML INFUS.BAG IV ONE (15:06)
[2025-01-10 15:13] LABS: EPI CELLS 2 /uL (0-25.1); HYALINE CASTS 0 /uL (0-3.1); URINE APPEARANCE CLOUDY; URINE BACTERIA 7392 /uL (0-1359); URINE BILIRUBIN NEGATIVE (NEGATIVE); URINE COLOR YELLOW; URINE GLUCOSE (UA) NEGATIVE (NEGATIVE); URINE KETONE 1+ (NEGATIVE); URINE LEUK ESTERASE NEGATIVE (NEGATIVE); URINE NITRITE NEGATIVE (NEGATIVE); URINE PROTEIN 1+ (NEGATIVE); URINE UROBILINOGEN 0.2 mg/dL (0.2-1.0); URINE WBC 26 /uL (0-25.8)
[2025-01-10 15:17] LABS: URINE RBC 88.7 /uL (0-23.9)
[2025-01-10 15:19] LABS: BASO % 0.4 % (0-2.0); EOS % 0.2 % (0-4.5); HEMATOCRIT 34.9 % (32.4-45.2); HEMOGLOBIN 11.3 GM/dL (10.7-15.3); LYMPH % 6.5 % (8-40); MCH 30.9 pg (25.7-33.7); MCHC 32.4 g/dl (32.0-36.0); MEAN CELL VOLUME 95.3 fl (80-96); MEAN PLT VOLUME 8.4 fl (7.5-11.1); MONO % 16.2 % (3.8-10.2); NEUT % 76.7 % (42.8-82.8); PLATELET COUNT 255 10^3/uL (134-434); RBC 3.67 M/mm3 (3.60-5.2); RDW 13.3 % (11.6-15.6); WHITE BLOOD COUNT 7.5 K/mm3 (4.0-10.0)
[2025-01-10 15:25] LABS: POTASSIUM 3.5 mmol/L (3.5-5.1)
[2025-01-10 15:28] LABS: ALBUMIN 3.5 g/dl (3.4-5.0); BLOOD UREA NITROGEN 20.8 mg/dL (7-18)
[2025-01-10 15:32] LABS: CREATININE 0.7 mg/dL (0.55-1.3)
[2025-01-10 15:33] LABS: BILIRUBIN,TOTAL 0.3 mg/dL (0.2-1); TOT PROT 6.8 g/dl (6.4-8.2)
[2025-01-10] MEDS: LACTATED RINGERS SOLUTION 1,000 ML/1,000 ML INFUS.BAG IV SCH (17:06)
[2025-01-10] MEDS: OSELTAMIVIR PHOSPHATE 75 MG CAPSULE PO ONE (17:36)
[2025-01-10] MEDS ORDERED: OSELTAMIVIR PHOSPHATE 75 MG CAPSULE ONE (17:36)
[2025-01-10] MEDS ORDERED: ACETAMINOPHEN INJECTION 100 ML ONE (18:13)
[2025-01-10] MEDS: ACETAMINOPHEN 1000 MG/100 ML BAG IVPB ONE (18:25)
[2025-01-10 19:38] VITALS: RESP 18
[2025-01-10] MEDS ORDERED: APIXABAN 2.5 MG TABLET PO SCH (22:00)
[2025-01-11] MEDS: INSULIN ASPART SLIDING SCALE (NOVOLOG) 1 VIAL SQ SCH (06:16)
[2025-01-11] MEDS: metFORMIN HCL 500 MG TABLET (FP) PO SCH (06:16)
[2025-01-11] MEDS ORDERED: INSULIN ASPART SLIDING SCALE (NOVOLOG) 1 VIAL SQ SCH (07:00)
[2025-01-11] MEDS ORDERED: GEMFIBROZIL 600 MG TABLET (FP) PO SCH (07:00)
[2025-01-11] MEDS ORDERED: amLODIPine BESYLATE 10 MG TABLET (FP) PO ONE (08:00)
[2025-01-11] MEDS: LOSARTAN POTASSIUM 25 MG TABLET PO SCH (09:59)
[2025-01-11] MEDS: OSELTAMIVIR PHOSPHATE 75 MG CAPSULE PO SCH (09:59)
[2025-01-11] MEDS ORDERED: AMIODARONE HCL 100 MG TABLET PO SCH (10:00)
[2025-01-11] MEDS: CEFTRIAXONE 1 G/50 ML PREMIX 50 ML IVPB SCH (15:11)
[2025-01-12 10:16] LABS: HEMATOCRIT 35.7 % (32.4-45.2); HEMOGLOBIN 12.4 GM/dL (10.7-15.3); MCH 32.2 pg (25.7-33.7); MCHC 34.8 g/dl (32.0-36.0); MEAN CELL VOLUME 92.4 fl (80-96); MEAN PLT VOLUME 8.6 fl (7.5-11.1); PLATELET COUNT 259 10^3/uL (134-434); RBC 3.86 M/mm3 (3.60-5.2); RDW 13.3 % (11.6-15.6); WHITE BLOOD COUNT 6.3 K/mm3 (4.0-10.0)
[2025-01-12 10:37] LABS: POTASSIUM 3.7 mmol/L (3.5-5.1)
[2025-01-12 10:40] LABS: ALBUMIN 3.2 g/dl (3.4-5.0); MAGNESIUM 1.7 mg/dL (1.8-2.4)
[2025-01-12 10:41] LABS: BLOOD UREA NITROGEN 14.9 mg/dL (7-18)
[2025-01-12 10:43] LABS: PHOSPHOROUS 3.6 mg/dL (2.5-4.9)
[2025-01-12 10:44] LABS: CREATININE 0.7 mg/dL (0.55-1.3)
[2025-01-12 10:45] LABS: BILIRUBIN,TOTAL 0.4 mg/dL (0.2-1); TOT PROT 6.7 g/dl (6.4-8.2)
[2025-01-12] MEDS: MAGNESIUM 2GM/50ML STERILE WATER IVPB IVPB ONE (12:17)
[2025-01-12] MEDS: SODIUM CHLORIDE 1,000 ML IV SCH (12:17)
[2025-01-12] MEDS: LEVOTHYROXINE NA 100 MCG TABLET (FP) PO SCH (19:27)
[2025-01-12] MEDS: ACETAMINOPHEN 325 MG TABLET (FP) PO PRN (21:39)
[2025-01-13 09:33] LABS: HEMATOCRIT 31.8 % (32.4-45.2); HEMOGLOBIN 11.1 GM/dL (10.7-15.3); MCH 32.3 pg (25.7-33.7); MCHC 34.9 g/dl (32.0-36.0); MEAN CELL VOLUME 92.7 fl (80-96); MEAN PLT VOLUME 8.1 fl (7.5-11.1); PLATELET COUNT 224 10^3/uL (134-434); RBC 3.44 M/mm3 (3.60-5.2); RDW 13.1 % (11.6-15.6); WHITE BLOOD COUNT 4.5 K/mm3 (4.0-10.0)
[2025-01-13 09:59] LABS: POTASSIUM 3.7 mmol/L (3.5-5.1)
[2025-01-13 10:12] LABS: ALBUMIN 2.7 g/dl (3.4-5.0); BLOOD UREA NITROGEN 16.6 mg/dL (7-18); CALCIUM 7.9 mg/dL (8.5-10.1); MAGNESIUM 1.8 mg/dL (1.8-2.4)
[2025-01-13 10:15] LABS: CREATININE 0.6 mg/dL (0.55-1.3); PHOSPHOROUS 2.9 mg/dL (2.5-4.9)
[2025-01-13 10:17] LABS: BILIRUBIN,TOTAL 0.3 mg/dL (0.2-1); TOT PROT 5.7 g/dl (6.4-8.2)
[2025-01-15] MEDS: ALBUTEROL SO4 2.5/IPRATROPIUM 0.5 INH SOL 3 ML VIAL.NEB. NEB ONE (09:05)
[2025-01-15] MEDS: ALBUTEROL SO4 2.5/IPRATROPIUM 0.5 INH SOL 3 ML VIAL.NEB. NEB SCH (12:41)
[2025-01-15 14:36] VITALS: BP 130/79; PULSE 105; TEMP 97.9
== END 2025-01-15 14:53 ==
LOC: JER 11:00 → JERBED 12:30 → J6S 20:50
PROVIDERS: ADMIT Internal Medicine; ATTEND Internal Medicine
PROC: 3E033NZ Introduction of Analgesics, Hypnotics, Sedatives into Peripheral Vein, Percutaneous Approach (ICD-10-PCS; principal; 2025-01-10)
PROC: 3E0F7GC Introduction of Other Therapeutic Substance into Respiratory Tract, Via Natural or Artificial Opening (ICD-10-PCS; 2025-01-10)
PROC: 3E03329 Introduction of Other Anti-infective into Peripheral Vein, Percutaneous Approach (ICD-10-PCS; 2025-01-10)
PROC: 3E013VG Introduction of Insulin into Subcutaneous Tissue, Percutaneous Approach (ICD-10-PCS; 2025-01-10)
PROC: 3E033GC Introduction of Other Therapeutic Substance into Peripheral Vein, Percutaneous Approach (ICD-10-PCS; 2025-01-10)
PROC: 3E0337Z Introduction of Electrolytic and Water Balance Substance into Peripheral Vein, Percutaneous Approach (ICD-10-PCS; 2025-01-10)
DX: J09.X2 Influenza due to identified novel influenza A virus with other respiratory manifestations (principal); M62.82 Rhabdomyolysis; E11.9 Type 2 diabetes mellitus without complications; R13.10 Dysphagia, unspecified; W18.39XA Other fall on same level, initial encounter; Y93.89 Activity, other specified; Y92.008 Other place in unspecified non-institutional (private) residence as the place of occurrence of the external cause; K44.9 Diaphragmatic hernia without obstruction or gangrene; I10 Essential (primary) hypertension; E03.9 Hypothyroidism, unspecified; K21.9 Gastro-esophageal reflux disease without esophagitis
CPT/HCPCS: 0241U-QW; 36415; 70450-TC; 71045-TC-FY; 71275-TC; 72125-TC; 72170-TC-FY; 73070-TC-RT-FY; 73560-TC-RT-FY; 74177-TC; 80053; 81003; 82550; 82553; 82803; 82962; 83036; 83605; 83735; 84100; 84484; 85025; 85027; 85610; 85730; 86140; 86850; 86900; 86901; 87040; 87086; 93005; 93010; 94640; 96365; 96366; 96372; 96375; 97116-GP; 97162-GP; 99285-25; G0378; J0131; Q9967